=== PATIENT | female | born 1995 | race Caucasian/White ===

== ENCOUNTER 2021-09-26 15:40 | Inpatient (IN) | payer OTHER, SELFPAY ==
[2021-09-26] VITALS (14 sets, daily range): BP systolic 102–123; BP diastolic 62–77; PULSE 80–136; TEMP 36.1–36.8; O2SAT 97–99; BMI 26.1
[2021-09-26] MEDS: Lactated Ringers 1,000 ML 999 ML IV (16:15)
[2021-09-26 16:32] LABS: Absolute Lymphocyte Count 1.67 X10^3/uL (0.83-4.51); Absolute Neutrophil Count 12.3 X10^3/uL (2.0-7.7); Basophil# 0.03 X10^3/uL; Basophil% 0.2 % (0-1); Eosinophil# 0.01 X10^3/uL; Eosinophils% 0.1 % (0-5); Hematocrit 36.9 % (37-47); Hemoglobin 12.3 g/dL (12.0-15.0); Lymphocyte # 1.67 X10^3/ul (0.83-4.51); Lymphocyte % 11.3 % (19-41); Mean Corp Hgb Conc 33.3 g/dL (32-36); Mean Corpuscular Hgb 27.6 pg (27.0-32.0); Mean Corpuscular Volume 82.9 fL (81-99); Mean Platelet Vol. 11.9 fl (6.2-12.0); Monocyte# 0.68 X10^3/uL; Monocyte% 4.6 % (0-10); NRBC Flagged by Analyzer 0 % (0-5); Neutrophil # 12.28 X10^3/uL (2.7-7.7); Neutrophil % 83.2 % (47-70); Platelet Count 187 K/mm3 (150-450); RBC Distribution Width CV 13.4 % (11.6-14.6); RBC Distribution Width SD 40.6 fl (35.1-43.9); Red Blood Count 4.45 M/mm3 (4.2-5.4); White Blood Count 14.8 K/mm3 (4.4-11.0)
--- NOTE | 2021-09-26 20:08 | PCM.HP.OB ---
HPI - General General Date of Admission: 09/26/21 HPI Narrative THUY BOND, is a 25 F who is admitted for labor. She was seen in the office today and was 3 cm dilated. Then began qiana after the exam and was 5 cm on recheck in the office. Having regular ctx's. No vb, lof. Good FM. Maternal Data Information KIM Calculator Estimated Delivery Date Method Current WG Current Estimate 10/15/21 LMP (Certain) 37w 2d PFSH PFSH Medical History (Updated 09/26/21 @ 20:[address] 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) Streptococcus group B infection of infant Medical History no medical history Home Medications + DHA 09/26/21 [History Last Taken 06/18/21] Allergy/AdvReac Type Severity Reaction Status Date / Time No Known Allergies Allergy Verified 09/26/21 16:32 Surgical History no surgical history Social History Smoking Status: Never smoker History Elective abortions Hx Para 1 Spontaneous abortions Hx # Term Pregnancies Ectopic pregnancies Hx # Pregnancies Multiple births # of living children NST FHR Rate Baby A FHR Category:: Category I Uterine Activity:: ctx q 2 min Vital Signs Vital Signs Vital Signs: 09/26/21 15:54 09/26/21 15:55 09/26/21 15:56 Temperature 97.6 F L Temperature Source Tympanic Pulse Rate 136 H 133 H Blood Pressure 117/77 BP Systolic 117 BP Diastolic 77 Pulse Ox 97 99 09/26/21 16:52 09/26/21 18:30 09/26/21 19:25 Temperature 97.7 F L Temperature Source Tympanic Pulse Rate 107 H 89 96 Blood Pressure 123/69 H 116/66 BP Systolic 123 116 BP Diastolic 69 66 Pulse Ox 98 09/26/21 19:26 Temperature 98.2 F Temperature Source Temporal Pulse Rate 84 Blood Pressure 123/71 H BP Systolic 123 BP Diastolic 71 Pulse Ox Weight Weight: 157 lb Body Mass Index (BMI) 26.1 Labs Labs Labs: Blood Type O POSITIVE Antibody Screen POSITIVE H Hct 36.9 % (37-47) L Hgb 12.3 g/dL (12.0-15.0) Assessment & Plan (1) 37 weeks gestation of : PLAN: - Patient made change from 3 to 5 cm - Admit for routine intrapartum care - PCN for GBS prophylaxis - Will wait for PCN time prior to any augmentation - Epidural PRN - EFW expected to be < 4500 g and pelvis adequate - Anticipate vaginal delivery (2) Uterine contractions: (3) Streptococcus group B infection of infant:
[2021-09-26] MEDS: Lactated Ringers 500 ML 999 ML IV (21:11)
--- NOTE | 2021-09-26 21:28 | PCM.PN.BLA ---
Progress Note Cvx /-3, posterior. PCN in. Unable to rupture at this time as baby is not engaged and cvx posterior. Will start pitocin gtt and rupture when able.
[2021-09-26] MEDS: Penicillin G 3,000,000 Units 50 ML 100 UNITS IV (21:49)
[2021-09-26] MEDS: Oxytocin 30 units/NS 500 ml 30 UNITS/500 ML IV.SOLN IV (22:10)
[2021-09-26] MEDS: Lactated Ringers 1,000 ML 200 ML IV (22:12)
[2021-09-27] VITALS (49 sets, daily range): BP systolic 94–128; BP diastolic 52–76; PULSE 64–132; RESP 16; TEMP 36.4–36.9; O2SAT 93–100
[2021-09-27] MEDS: Lactated Ringers 500 ML 999 ML IV ×2 (00:22→02:23)
[2021-09-27] MEDS: fentaNYL-bupivacaine (epidural) 100 ML BAG EPIDURAL (01:24)
[2021-09-27] MEDS: Oxytocin 30 units/NS 500 ml 30 UNITS/500 ML IV.SOLN 334 UNITS IV (02:57)
--- NOTE | 2021-09-27 03:10 | PCM.OPRPT ---
Problems Associated Problem List Diagnoses (1) Uterine contractions: (2) 37 weeks gestation of : Report of Operation Date of Procedure: 09/27/21 Pre-Operative Diagnosis: 37 week gestation, labor Post-Operative Diagnosis: As above Surgery/Procedure Performed:: Description of Surgical Findings:: VFI delivered in OVI position. Clear fluid. Normal appearing placenta and 3VC. Surgeon: Johan Type of Anesthesia: Epidural Specimen's removed: Placenta Drains: Cook Estimated Blood Loss (mL): 150 Fluids Replaced: See anesthesia record Description of Procedure: The patient was complete and an artificial rupture of membranes was performed for a moderate amount of clear fluid. Patient then began pushing. The head of the was delivered in left occiput anterior position followed by the anterior shoulder without any delay, followed by the posterior shoulder and body of the infant without force or delay. A viable female infant was delivered atraumatically and placed on maternal abdomen. The was vigorous. The cord was clamped and cut after a delay. The cord was cut by the father of the baby. Cord blood was obtained. Placenta was delivered with uterine massage. The placenta was noted to be normal-appearing and intact with a three-vessel cord. Uterus was explored x1. No lacerations were noted. Vaginal sweep was performed. Instrument sponge counts were correct. Apgars were 8 and 8. Grafts/Implants Used: None Complications None Admit VTE Documentation VTE Present on Admission: No
[2021-09-27] MEDS: Ibuprofen 600 MG Tablet PO ×2 (08:38→15:37)
[2021-09-27] MEDS: Hydrocortisone 2.5% Crm 1 APPLIC TOPICAL (08:38)
[2021-09-27] MEDS: Benzocaine/Lanolin/Aloe Vera 1 SPRAY EACH TOPICAL (08:43)
--- NOTE | 2021-09-27 12:16 | NURSING ---
This chief nursing officer reviewed the documentation completed by Brian Valerio, student nurse. This documentation was for educational purposes.
[2021-09-27] MEDS: Acetaminophen 500 MG Tablet 1000 MG PO (20:22)
[2021-09-28] MEDS: Ibuprofen 600 MG Tablet PO (00:54)
[2021-09-28 00:57] VITALS: BP 105/59; PULSE 71; RESP 16; TEMP 36.4; O2SAT 97
[2021-09-28 03:41] VITALS: BP 110/63; PULSE 69; RESP 18; TEMP 36.6; O2SAT 97
--- NOTE | 2021-09-28 07:09 | PCM.PN.OB ---
Subjective Subjective Patient seen at bedside. Feeling good. without difficulty. Some mild cramping that is relieved with Motrin PO. Ambulating and voiding without difficulty. Lochia minimal. Desires discharge home today. Objective Data Objective Data Vital Signs: Vital Signs Temp Pulse Resp BP Pulse Ox 97.8 F 69 18 110/63 97 09/28/21 03:41 09/28/21 03:41 09/28/21 03:41 09/28/21 03:41 09/28/21 03:41 Oxygen Delivery Method Room Air Weight: 157 lb Body Mass Index (BMI) 26.1 Intake & Output: Intake and Output for Last 24 Hours 09/26/21 09/27/21 09/28/21 23:59 23:59 23:59 Intake Total 1655 / 1655 2252.90 / 2252.90 Output Total 2200 / 2200 Balance 1655 / 1655 52.90 / 52.90 Lab / Micro Data Result Diagrams: 09/26/21 16:15 Labs: Laboratory Results - last 24 hr 09/26/21 16:15: Antibody Identification ANTI-LITTLE c Micro: Microbiology 09/26/21 16:15 Nasal Secretion SARS-CoV-2 Antigen (Rapid) - Final ROS Eyes Eyes: Denies blurry vision, change in vision or spots in vision ENT HEENT: Denies dizziness or headache(s) Cardiovascular Cardiovascular: Denies abdominal pain, chest pain or dyspnea Respiratory/Chest Respiratory/Chest: Denies cough, dyspnea, shortness of breath at rest or shortness of breath with exertion Gastrointestinal Gastrointestinal: Denies abdominal pain, diarrhea or vomiting Genitourinary Genitourinary: Denies change in urinary stream, difficulty urinating or dysuria Musculoskeletal Musculoskeletal: Reports none Integumentary Integumentary: Denies rash Neurologic Neurologic: Denies dizziness, headache(s), memory loss or weakness Physical Exam Const alert and no apparent distress General Appearance: cooperative and comfortable Exam Limitations: no limitations HEENT normocephalic Eyes General Eye: normal appearance of both eyes Neck full ROM General: normal visual inspection Chest Chest: symmetrical chest wall rise Resp normal respiratory effort and normal air movement Effort and Inspection: symmetric chest movement Auscultation: clear to auscultation bilaterally Cardio regular rate and regular rhythm GI normal to inspection, nondistended, normoactive bowel sounds Back/Spine normal ROM Extremity full ROM and no calf tenderness General Extremity: normal exam except as noted Skin no rashes or lesions noted Neuro CN's II-XII intact bilaterally Psych mental status grossly normal Assessment & Plan (1) (spontaneous vaginal delivery): (2) Care and examination of lactating mother: PLAN: PPD 2 Routine care support Discharge home with follow up in office
--- NOTE | 2021-09-28 07:12 | PCM.DC ---
Discharge Instructions Diet Discharge Diet: No restrictions Activity May resume sexual activity in: 6-8 weeks Weight Bearing Status: Weight bearing as tolerated Dressing / Incision Call your doctor if you observe: Fever of 101 or Higher, Inability to urinate, Using more than 1 pad per hour, Shortness of breath, Chest pain, Calf discomfort and Uncontrolled pain Follow Up Care When: 2 weeks virtual visit/ 6 weeks in office Test Results: Test results from this visit will be discussed in further detail at your follow-up appointment, if applicable. Discharge Plan Admission Admit Date/Time: 09/26/21 15:40 Primary Reason for Your Visit: Labor and Delivery Attending Provider: Farheen Prado Primary Care Provider: Care Physician,Chloe Primary Discharge Orders/Prescriptions Prescriptions: No Action + DHA RF: 0 Referrals / Follow Up: Care Physician,No Primary [Primary Care Provider] - Disposition Disposition (needs filled in before D/C Order can be placed): Home, Self Care
[2021-09-28 08:00] VITALS: BP 114/70; PULSE 99; RESP 16; TEMP 36.6
== END 2021-09-28 10:15 | disposition home or self-care (01) | DRG 807 ==
PROVIDERS: Admitting Provider Obstetrics & Gynecology; Visit Provider Obstetrics & Gynecology
DX: O80 Encounter for full-term uncomplicated delivery (principal); Z37.0 Single live birth; Z3A.37 37 weeks gestation of pregnancy; Z82.79 Family history of other congenital malformations, deformations and chromosomal abnormalities
CPT/HCPCS: 59025; 59050; 85025; 86850; 86870; 86900; 86901; 86902; 86920; 86922; 87426; 99218; J7120; G0378

== ENCOUNTER 2023-04-03 09:12 | Day surgery (SDC) | payer OTHER, SELFPAY ==
--- NOTE | 2023-03-27 13:29 | PCM.HP.BLA ---
History and Physical Date of Admission: 04/03/23 ? HPI: The patient is a 27 year old female presenting for pre-operative visit. She is scheduled for bilateral labiaplasty, for labial hypertrophy resulting in dyspareunia on 04/03/23. Procedure discussed along with risks, benefits and complications. Other alternatives discussed for management. Consent form signed? Yes. ? ? PAST MEDICAL HISTORY PAST MEDICAL HISTORY Diagnosis Date ? Abnormal Pap smear of cervix 03/09/2021 ? LGSIL-done in [place] ? Acne vulgaris ? ? Cervical high risk HPV (human papillomavirus) test positive 10/2021 ? +16 ? 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 CARLITOS 2-3 ? Pap smear of cervix with ASCUS, cannot exclude HGSIL 10/2021 ? ? PAST SURGICAL HISTORY PAST SURGICAL HISTORY Procedure Laterality Date ? VAGINOSCOPY ? 12/11/2021 ? CARLITOS 2-3 ? ? ? CURRENT MEDICATIONS Current Outpatient Medications Medication Sig Dispense Refill ? fluconazole (DIFLUCAN) 150 mg tablet Take one tablet by mouth once. Then repeat every 3 days for 3 doses. (Patient not taking: Reported on 02/24/2023) 3 tablet 0 ? loratadine (CLARITIN ORAL) Take by mouth. (Patient not taking: Reported on 08/01/2022) ? ? ? No current facility-administered medications for this visit. ? ? ALLERGIES: Patient has no known allergies. ? PERSONAL HISTORY: SOCIAL HISTORY Social History ? Tobacco Use ? Smoking status: Never ? Smokeless tobacco: Never Vaping Use ? Vaping Use: Never used Substance Use Topics ? Alcohol use: No ? Drug use: No ? FAMILY HISTORY: FAMILY HISTORY FAMILY HISTORY Problem Relation Age of Onset ? No Known Problems Mother ? ? No Known Problems Father ? ? No Known Problems Sister ? ? No Known Problems Brother ? ? Lung Cancer Maternal Grandmother ? ? Skin Cancer Maternal Grandfather ? ? Diabetes Paternal Grandmother ? ? Colon Cancer Paternal Grandfather ? ? No Known Problems Daughter ? ? None No Family History ? ? ? REVIEW OF SYMPTOMS: GENERAL: denies fevers or chills ENDOCRINOLOGY: has not been on steroids Cardiology : denies palpitations or chest pain Respiratory: denies SOB or cough Hematology: denies history of prolonged bleeding or easy bruising or VTE Allergy: Denies history of personal or family history of allergy to anesthesia ? PHYSICAL EXAMINATION: ? VITALS: Blood pressure 118/76, height 5' 5 (1.651 m), weight 122 lb (55.3 kg), last menstrual period 03/12/2023, not currently . ? GENERAL: The patient is well nourished, well hydrated in no acute distress. , The patient is oriented to time, place, and person. NECK: Supple. No lynphadenopathy, normal thyroid, no thyromegaly. LUNGS: Clear to auscultation bilaterally. no wheezes, rhonchi or rales HEART: Regular rate and rhythm, Normal heart sounds, and No murmurs or gallops ? IMPRESSION: labial hypertrophy resulting in dyspareunia nad affecting quality of life, clothing options ? PLAN: The risks/benefits/alternatives and personal involved for the planned bilateral labial reduction were reviewed with the patient. Her questions were answered to her satisfaction and she desires to proceed. Consent was signed. I reviewed with her postop instructions and expectations. ? ? I have reviewed and updated past medical and surgical history, medications and allergies This H&P was completed in my office on 03/26/23. Assessment & Plan Assessment/Plan (1) Labial hypertrophy: (2) Dyspareunia:
[2023-04-03] VITALS (7 sets, daily range): BP systolic 94–110; BP diastolic 59–73; PULSE 74–90; RESP 16–18; TEMP 36.6–37.2; O2SAT 77–100; BMI 20.3
--- NOTE | 2023-04-03 | MISC_PTH ---
PATIENT: THUY BOND [place] [facility] [id number] AGE/SX: 27/F ROOM: RE04/03/[address]: Dr. Francesca Salvador MD : [id number] BED: DIS: 04/03/2023 SPEC #: [id number] RECD: 04/03/23 14:09 STATUS: IGOR EMILIE #: [id number] MARY: 04/03/23 00:[address]: Francesca Salvador DEPT: SURGICAL PATHOLOGY RECD BY: Wilber Zhang ENTERED: 04/04/23 08:02 SP TYPE: [facility] [place] DR: No Primary Care Phys Tissues: Labial gland, NOS Procedures: Surgery Specimen Level IV HEADER OPERATION: Labiaplasty PRE-OP DIAGNOSIS: Labial hypertrophy, dyspareunia TISSUE SUBMITTED: Bilateral labial tissue MICROSCOPIC DIAGNOSIS Bilateral labial tissue, excision: Hyperkeratosis and mild chronic inflammation. AM:jessica 04/07/2023 MICROSCOPIC DESCRIPTION Slides are reviewed. GROSS DESCRIPTION Received in fixative is one container labeled with the patient's name and designated bilateral labial tissue. The specimen consists of two glistening fragments of mariano mucosa with attached submucosal tissue that in aggregate measure 4.4 x 4.0 x 0.6 cm. No mass lesions are identified. Brim Pouncer Machine Operator sections from both fragments are submitted separately in two cassettes. / AM:jessica 04/04/2023 TC:3 CPT: 12462
[2023-04-03 09:40] LABS: Internal QC Validated? YES +Cl - CLEAR BKGD
[2023-04-03 09:43] LABS: Pregnancy, Urine Negative Negative
[2023-04-03] MEDS: Lactated Ringers 1,000 ML 15 ML IV (09:58)
[2023-04-03] MEDS: Acetaminophen 500 MG Tablet 1000 MG PO (09:59)
[2023-04-03] MEDS: Ketorolac 30 MG/ML Syringe IV (10:00)
[2023-04-03 10:02] LABS: Hematocrit 40.8 % (37-47); Mean Corp Hgb Conc 31.9 g/dL (32-36); Mean Corpuscular Hgb 27.5 pg (27.0-32.0); Mean Corpuscular Volume 86.3 fL (81-99); Mean Platelet Vol. 11.2 fl (6.2-12.0); Platelet Count 228 K/mm3 (150-450); RBC Distribution Width CV 13.2 % (11.6-14.6); RBC Distribution Width SD 41.1 fl (35.1-43.9); Red Blood Count 4.73 M/mm3 (4.2-5.4); White Blood Count 6.6 K/mm3 (4.4-11.0)
--- NOTE | 2023-04-03 12:35 | DCINST_ITS ---
Discharge Instructions Diet Discharge Diet: No restrictions Activity Discharge Activity: May Shower and May Take a Tub Bath (in 10 days) May resume sexual activity in: 2 weeks Lifting Restrictions: none Dressing / Incision Call your doctor if your incision/area has: Sudden Increased Bleeding and Foul Smelling Discharge Call your doctor if you observe: Fever of 101 or Higher and Using more than 1 pad per hour (for 2 hrs in a row) Cleanse incision/area with: Soap & Water Follow Up Care Please Follow Up With: Francesca Salvador MD When: You should have a follow-up in 7 to 10 days. If you do not have 1 please contact the office at [phone] or send a [employer] message. Test Results: Test results from this visit will be discussed in further detail at your follow- up appointment, if applicable. Discharge Plan Admission Primary Reason for Your Visit: Labiaplasty- bilateral Attending Provider: Francesca Salvador Primary Care Provider: Care Physician,Chloe Primary Discharge Orders/Prescriptions Prescriptions: No Action + DHA Referrals / Follow Up: Care Physician,No Primary [Primary Care Provider] - Disposition Disposition (needs filled in before D/C Order can be placed): Home, Self Care
[2023-04-03] MEDS: Lidocaine 1%/Epi 1:100 (30ml) 30 ML VIAL (12:48)
--- NOTE | 2023-04-03 13:02 | OP.PCM_ITS ---
Problems Associated Problem List Diagnoses (1) Dyspareunia: (2) Labial hypertrophy: Report of Operation Date of Procedure: 04/03/23 Pre-Operative Diagnosis: labial hypertrophy and dyspareunia Post-Operative Diagnosis: same Surgery/Procedure Performed:: Bilateral labiaplasty Description of Surgical Findings:: hypertrophied labia minora bilaterlly, normal labia major and introitus Surgeon: Francesca Salvador activities assistant: None Type of Anesthesia: MAC/Supplemental/Local Anesthesiologist: Lindsay Rodriguez Special Medications: none Specimen's removed: bilateral labia minora tissue Drains: none Estimated Blood Loss (mL): 10 Fluids Replaced: 800none Description of Procedure: The patient was taken the operating room where she was prepped and draped in the dorsolithotomy position. The redundant labial minora tissue was marked and then 1% lidocaine with 1-200,000 epinephrine was used to infiltrate the tissue. Made an elliptical incision so that the redundant tissue was removed and the labia would be left with a physiological curve. The skin edges were then oversewn with 3-0 Vicryl Rapide suture and hemostasis was noted. A small layer of skin glue was placed over the incisions. This was allowed to dry. The patient was then taken recovery room stable condition. Vaginal sweep was completed by me. Sponge and needle counts were correct. Grafts/Implants Used: none Procedure Start Time: 12:43 Procedure Stop Time: 12:56 Complications none Admit VTE Documentation VTE Present on Admission: No VTE Mechan Device Prophylaxis: SCD's VTE Pharm Prophylaxis ordered?: No Reason prophylaxis not ordered:: Procedure Not Indicated
== END 2023-04-03 14:00 | disposition home or self-care (01) ==
LOC: SDC 09:16 → AC 09:18
PROVIDERS: Referring Provider Obstetrics & Gynecology; Visit Provider Obstetrics & Gynecology
PROC: (CPT 56620; principal; 2023-04-03 10:50)
DX: N90.4 Leukoplakia of vulva (principal); L85.9 Epidermal thickening, unspecified; N90.60 Unspecified hypertrophy of vulva
CPT/HCPCS: 56620; 00906; 81025; 85027; 88305; J7120

== ENCOUNTER 2023-04-03 17:30 | Observation (INO) | payer OTHER, SELFPAY ==
[2023-04-03 17:32] VITALS: BP 139/65; PULSE 137; RESP 18; TEMP 37; O2SAT 99; BMI 21.7
[2023-04-03] MEDS: Morphine 4 MG/ML Syringe IV ×2 (17:37→18:17)
[2023-04-03] MEDS: Ondansetron 4 MG/2 ML Vial IV ×2 (17:37→23:16)
[2023-04-03] MEDS: 0.9% Normal Saline 1,000 ML 1000 ML IV (17:38)
--- NOTE | 2023-04-03 17:41 | EDS_ITS ---
HPI History of Present Illness Chief Complaint: Wound Informant: patient Narrative Narrative: Patient presents with vulvar swelling and hematoma. Patient had labioplasty performed today by Dr. Salvador. She states she left the hospital around 2 PM. She went home and tried using ice pack and some Dermoplast to her incision area. She noted increased pain and swelling. She states she did have bleeding that filled 1 pad at home. EMS was called and patient was transported. On arrival patient is very anxious. She has pain to the surgical sites but no other abdominal pain or chest pain. 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) MRSA infection Non-smoker Smoker Streptococcus group B infection of infant Streptococcus group B infection of (spontaneous vaginal delivery) Uterine contractions Home Medications + DHA 09/26/21 [History Last Taken 06/18/21] Allergy/AdvReac Type Severity Reaction Status Date / Time No Known Allergies Allergy Verified 04/03/23 17:30 Surgical History H/O LEEP Social History Smoking Status: Never smoker ROS ROS ED Constitutional Constitutional ED: Denies chills or fever(s) Eyes Eyes: Denies change in vision or discharge from eye(s) ENT ENT ED: Denies discharge from eye(s), rhinorrhea or sore throat Cardiovascular Cardiovascular: Denies chest pain or palpitations Respiratory/Chest Respiratory/Chest: Denies cough or dyspnea Gastrointestinal Gastrointestinal: Denies abdominal pain, nausea or vomiting Genitourinary Genitourinary ED: Reports other Details: Vulvar pain Musculoskeletal Musculoskeletal: Denies back pain or extremity pain Integumentary Denies Abrasions or rash Neurologic Neurologic: Denies headache(s) or weakness Psychiatric Psychiatric: Denies anxiety or depression Allergic/Immunologic Allergic/Immunologic ED: Denies lip swelling or urticaria EXAM Physical Exam Const Vital Signs: 04/03/23 17:32 04/03/23 19:34 Temperature 98.6 F 97.4 F L Temperature Source Temporal Temporal Pulse Rate 137 H 110 H Respiratory Rate 18 20 H Blood Pressure 139/65 H 108/58 L Blood Pressure Mean 89 74 Pulse Ox 99 100 Oxygen Delivery Method Room Air Room Air Positive well nourished and well developed General Appearance ED: well developed Eyes EOMs intact bilaterally Chest Wall inspection of chest normal and palpation of chest normal Resp normal respiratory effort and clear to auscultation bilaterally Cardio Rate: tachycardic GI GI Narrative: Abdomen soft and nontender. Narrative: Large hematoma noted to the vulva, right side greater than left. Mild bleeding from the incision on the left. Extremity normal to inspection Neuro oriented x3 Psych Mood & Affect: anxious and tearful MDM MDM MDM Narrative Medical decision making narrative: Patient given analgesics and IV fluids. Labwork obtained to evaluate for leukocytosis, anemia, and electrolyte derangement. I spoke with Dr. Cherie Stock, on-call for Dr. Salvador just after I saw the patient. She is on her way to her delivery and then will be up to see the patient. She did asked that we place ice packs and compression to the area. I was called back to the room a short time later stating that the incision on the left had reopened and was bleeding. Pressure was held to this area. I see no pulsatile bleeding. Pressure dressing and ice is applied to the area. Lab Data Labs: Laboratory Results - last 24 hr 04/03/23 17:40 WBC 8.1 RBC 4.05 L Hgb 11.1 L Hct 35.4 L MCV 87.4 MCH 27.4 MCHC 31.4 L RDW Std Deviation 42.2 RDW Coeff of [place]ien[place] 13.2 Plt Count 233 MPV 11.1 Immature Gran % (Auto) 0.400 Neut % (Auto) 49.1 Lymph % (Auto) 40.3 [place] % (Auto) 8.6 Eos % (Auto) 1.1 Baso % (Auto) 0.5 Absolute Neuts (auto) 4.0 Absolute Lymphs (auto) 3.28 Nucleated RBC % 0 PT 14.2 INR 1.1 APTT 30.0 Sodium 140 Potassium 3.2 L Chloride 110 H Carbon Dioxide 26.0 Anion Gap 4 L BUN 12 Creatinine 0.74 Estim Creat Clear Calc 99.48 Est GFR (MDRD) Af Amer 121 Est GFR (MDRD) Non-Af 100 BUN/Creatinine Ratio 16.1 Glucose 102 Calcium 7.9 L Treatment and Re-Evaluation :: CBC was a hemoglobin of 11.1. Hemoglobin this morning was 13, however it is noted the patient did receive IV fluids. Chemistry studies reveal slightly low potassium at 3.2. Patient's blood pressures remained stable with IV fluids. She is received 2 rounds of morphine for pain control with dressing changes. Dr. Stock presented to the ER and examine the patient at bedside. She will admit the patient for 24-hour observation and close monitoring. Discharge Plan Dx/Rx/DC Orders Clinical Impression: Post-op bleeding Disposition Disposition: Acute Care Hospital [facility]
[2023-04-03 17:49] LABS: Absolute Lymphocyte Count 3.28 X10^3/uL (0.83-4.51); Basophil# 0.04 X10^3/uL; Basophil% 0.5 % (0-1); Eosinophil# 0.09 X10^3/uL; Eosinophils% 1.1 % (0-5); Hematocrit 35.4 % (37-47); Hemoglobin 11.1 g/dL (12.0-15.0); Lymphocyte # 3.28 X10^3/ul (0.83-4.51); Lymphocyte % 40.3 % (19-41); Mean Corp Hgb Conc 31.4 g/dL (32-36); Mean Corpuscular Hgb 27.4 pg (27.0-32.0); Mean Corpuscular Volume 87.4 fL (81-99); Mean Platelet Vol. 11.1 fl (6.2-12.0); Monocyte% 8.6 % (0-10); NRBC Flagged by Analyzer 0 % (0-5); Neutrophil # 3.99 X10^3/uL (2.7-7.7); Neutrophil % 49.1 % (47-70); Platelet Count 233 K/mm3 (150-450); RBC Distribution Width CV 13.2 % (11.6-14.6); RBC Distribution Width SD 42.2 fl (35.1-43.9); Red Blood Count 4.05 M/mm3 (4.2-5.4); White Blood Count 8.1 K/mm3 (4.4-11.0)
[2023-04-03 17:58] LABS: International Normalized Ratio 1.1; Prothrombin Time (Protime)PT. 14.2 SECONDS (11.7-14.9)
[2023-04-03 18:02] LABS: Anion Gap 4 (5-15); BUN 12 mg/dL (7-18); BUN/Creat Ratio 16.1 RATIO (10-20); Calcium,Total 7.9 mg/dL (8.5-10.1); Chloride 110 mmol/L (98-107); Creatinine, Serum 0.74 mg/dL (0.55-1.02); EST Glomerular Filtration Rate 100 mL/min (>60); Est Glom Filt Rate - Afr Amer 121 mL/min (>60); Estimated Creatinine Clearance 99.48 ml/min; Glucose 102 mg/dL (74-106); Potassium 3.2 mmol/L (3.5-5.1); Sodium Level 140 mmol/L (136-145)
[2023-04-03] MEDS: 0.9% Normal Saline 1,000 ML 150 ML IV (18:19)
[2023-04-03] MEDS: 0.9% Normal Saline 1,000 ML 999 ML IV (18:26)
[2023-04-03 19:34] VITALS: BP 108/58; PULSE 110; RESP 20; TEMP 36.3; O2SAT 100
--- NOTE | 2023-04-03 19:39 | HP.PCM_ITS ---
HPI - General General Date of Admission: 04/03/23 Date of Service: 04/03/23 Chief Complaint: Labial pain HPI Narrative THUY BOND, is a 27 F who presents via squad to the ED. Patient had labial reduction surgery earlier today. She went home and tried using an ice pack and some Dermoplast. This afternoon she noticed increased pain and swelling. She presented to the ED with vulvar swelling and hematoma. She states she did have bleeding that filled 1 pad at home. Patient was anxious on arrival to ED. She has pain to the surgical sites but no other abdominal pain or chest pain. 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) MRSA infection Non-smoker Smoker Streptococcus group B infection of Streptococcus group B infection of (spontaneous vaginal delivery) Uterine contractions Home Medications + DHA 09/26/21 [History Last Taken 06/18/21] Allergy/AdvReac Type Severity Reaction Status Date / Time No Known Allergies Allergy Verified 04/03/23 17:30 Surgical History H/O LEEP Social History Smoking Status: Never smoker Vital Signs Vital Signs Vital Signs: 04/03/23 17:32 04/03/23 19:34 Temperature 98.6 F 97.4 F L Temperature Source Temporal Temporal Pulse Rate 137 H 110 H Respiratory Rate 18 20 H Blood Pressure 139/65 H 108/58 L Blood Pressure Mean 89 74 Pulse Ox 99 100 Oxygen Delivery Method Room Air Room Air Weight Weight: 130 lb 1.164 oz Body Mass Index (BMI) 21.7 Physical Exam Narrative - right labial swelling with hematoma, total measurement [id number], area of scant oozing Const alert and oriented x3 Constitutional Narrative: appears uncomfortable Resp normal respiratory effort GI soft to palpation, non-tender and non-distended Results Lab / Micro Data 04/03/23 17:40 04/03/23 17:40 Labs: Laboratory Results - last 24 hr 04/03/23 17:40: WBC 8.1, RBC 4.05 L, Hgb 11.1 L, Hct 35.4 L, MCV 87.4, MCH 27.4, MCHC 31.4 L, RDW Std Deviation 42.2, RDW Coeff of Siena 13.2, Plt Count 233, MPV 11.1, Immature Gran % (Auto) 0.400, Neut % (Auto) 49.1, Lymph % (Auto) 40.3, [place] % (Auto) 8.6, Eos % (Auto) 1.1, Baso % (Auto) 0.5, Absolute Neuts (auto) 4.0, Absolute Lymphs (auto) 3.28, Nucleated RBC % 0, PT 14.2, INR 1.1, APTT 30.0, Sodium 140, Potassium 3.2 L, Chloride 110 H, Carbon Dioxide 26.0, Anion Gap 4 L, BUN 12, Creatinine 0.74, Estim Creat Clear Calc 99.48, Est GFR (MDRD) Af Amer 121, Est GFR (MDRD) Non-Af 100, BUN/Creatinine Ratio 16.1, Glucose 102, Calcium 7.9 L Assessment & Plan Assessment/Plan (1) Labial pain: (2) Vulvar hematoma: PLAN: Plan 27yo female POD#0 Admit for 23hr obs Heme - HDS. CBC reviewed. Check repeat CBC in AM. Hypokalemia - potassium in IVF & will repeat in AM Stephanie & pressure applied to area of scant bleeding. Ice packs also applied. Plan for observation overnight. Patient seen 3 times over a 3 hours period this evening. Hematoma noted to be stable to slightly smaller in size. Also oozing of blood from right inferior labia noted to be minimal to stopped at 3rd check. Plan of care discussed with patient & her . All questions answered.
[2023-04-03 20:18] VITALS: BMI 21.3
[2023-04-03 20:20] VITALS: BP 107/63; PULSE 87; RESP 16; TEMP 36.6; O2SAT 100
[2023-04-03] MEDS: Acetaminophen 500 MG Tablet 1000 MG PO (20:59)
[2023-04-03] MEDS: KCl 20MEQ in D5NS 20 MEQ/1,000 ML IV.SOLN. 100 MEQ IV (21:15)
[2023-04-03 22:04] VITALS: BP 99/54; PULSE 73; RESP 16; TEMP 36.6; O2SAT 99
[2023-04-03] MEDS: Morphine 2 MG/ML Syringe IV (22:06)
[2023-04-03] MEDS: Ibuprofen 600 MG Tablet PO (23:17)
[2023-04-04] MEDS: oxyCODONE 5 MG Tablet 10 MG PO ×3 (01:53→17:28)
[2023-04-04 01:58] VITALS: BP 106/60; PULSE 87; RESP 16; TEMP 36.7; O2SAT 99
[2023-04-04 06:00] LABS: Absolute Lymphocyte Count 2.06 X10^3/uL (0.83-4.51); Absolute Neutrophil Count 4.8 X10^3/uL (2.0-7.7); Basophil# 0.03 X10^3/uL; Basophil% 0.4 % (0-1); Eosinophil# 0.06 X10^3/uL; Eosinophils% 0.8 % (0-5); Hematocrit 27.3 % (37-47); Hemoglobin 8.4 g/dL (12.0-15.0); Lymphocyte # 2.06 X10^3/ul (0.83-4.51); Mean Corp Hgb Conc 30.8 g/dL (32-36); Mean Corpuscular Hgb 27.8 pg (27.0-32.0); Mean Corpuscular Volume 90.4 fL (81-99); Mean Platelet Vol. 11.4 fl (6.2-12.0); Monocyte# 0.66 X10^3/uL; Monocyte% 8.6 % (0-10); NRBC Flagged by Analyzer 0 % (0-5); Neutrophil # 4.81 X10^3/uL (2.7-7.7); Neutrophil % 62.9 % (47-70); Platelet Count 178 K/mm3 (150-450); RBC Distribution Width CV 13.6 % (11.6-14.6); RBC Distribution Width SD 44.6 fl (35.1-43.9); Red Blood Count 3.02 M/mm3 (4.2-5.4); White Blood Count 7.6 K/mm3 (4.4-11.0)
[2023-04-04] MEDS: Acetaminophen 500 MG Tablet 1000 MG PO ×3 (06:15→21:20)
[2023-04-04 06:20] VITALS: BP 95/58; PULSE 70; RESP 18; TEMP 36.7; O2SAT 100
[2023-04-04 06:24] LABS: Anion Gap 2 (5-15); BUN 10 mg/dL (7-18); BUN/Creat Ratio 17.2 RATIO (10-20); Calcium,Total 7.7 mg/dL (8.5-10.1); Chloride 115 mmol/L (98-107); Creatinine, Serum 0.58 mg/dL (0.55-1.02); EST Glomerular Filtration Rate 133 mL/min (>60); Est Glom Filt Rate - Afr Amer 161 mL/min (>60); Estimated Creatinine Clearance 132.26 ml/min; Glucose 113 mg/dL (74-106); Potassium 4.1 mmol/L (3.5-5.1); Sodium Level 144 mmol/L (136-145)
[2023-04-04] MEDS: KCl 20MEQ in D5NS 20 MEQ/1,000 ML IV.SOLN. 100 MEQ IV ×2 (06:43→17:29)
--- NOTE | 2023-04-04 09:01 | PN_ITS ---
Subjective Subjective Patient seen at bedside, emotional this morning. Christianson catheter is in place. She reports that her pain is slightly improved since last night. She is not complaining of any chest pain, shortness of breath or dizziness. She denies any pressure into her rectal area. She has not had anything to eat or drink at this time. Objective Data Objective Data Vital Signs: Vital Signs Temp Pulse Resp BP Pulse Ox O2 Del Method 98.0 F 70 18 95/58 L 100 Room Air 04/04/23 06:20 04/04/23 06:20 04/04/23 06:20 04/04/23 06:20 04/04/23 06:20 04/04/23 06:20 Oxygen Delivery Method Room Air Weight: 58.1 kg Body Mass Index (BMI) 21.3 Intake & Output: Intake and Output for Last 24 Hours 04/02/23 04/03/23 04/04/23 23:59 23:59 23:59 Intake Total 2377.5 / 2377.5 946.67 / 946.67 Output Total 0 / 0 Balance 2377.5 / 2377.5 946.67 / 946.67 Lab / Micro Data 04/04/23 05:25 04/04/23 05:25 Labs: Laboratory Results - last 24 hr 04/03/23 17:40: WBC 8.1, RBC 4.05 L, Hgb 11.1 L, Hct 35.4 L, MCV 87.4, MCH 27.4, MCHC 31.4 L, RDW Std Deviation 42.2, RDW Coeff of Siena 13.2, Plt Count 233, MPV 11.1, Immature Gran % (Auto) 0.400, Neut % (Auto) 49.1, Lymph % (Auto) 40.3, Warrick % (Auto) 8.6, Eos % (Auto) 1.1, Baso % (Auto) 0.5, Absolute Neuts (auto) 4.0, Absolute Lymphs (auto) 3.28, Nucleated RBC % 0, PT 14.2, INR 1.1, APTT 30.0, Sodium 140, Potassium 3.2 L, Chloride 110 H, Carbon Dioxide 26.0, Anion Gap 4 L, BUN 12, Creatinine 0.74, Estim Creat Clear Calc 99.48, Est GFR (MDRD) Af Amer 121, Est GFR (MDRD) Non-Af 100, BUN/Creatinine Ratio 16.1, Glucose 102, Calcium 7.9 L, Blood Type O POSITIVE, Antibody Screen NEGATIVE 04/04/23 05:25: WBC 7.6, RBC 3.02 L, Hgb 8.4 L, Hct 27.3 L, MCV 90.4, MCH 27.8, MCHC 30.8 L, RDW Std Deviation 44.6 H, RDW Coeff of Siena 13.6, Plt Count 178, MPV 11.4, Immature Gran % (Auto) 0.300, Neut % (Auto) 62.9, Lymph % (Auto) 27.0, Warrick % (Auto) 8.6, Eos % (Auto) 0.8, Baso % (Auto) 0.4, Absolute Neuts (auto) 4.8, Absolute Lymphs (auto) 2.06, Nucleated RBC % 0, Sodium 144, Potassium 4.1, Chloride 115 H, Carbon Dioxide 27.0, Anion Gap 2 L, BUN 10, Creatinine 0.58, Estim Creat Clear Calc 132.26, Est GFR (MDRD) Af Amer 161, Est GFR (MDRD) Non-Af 133, BUN/Creatinine Ratio 17.2, Glucose 113 H, Calcium 7.7 L Physical Exam Narrative Right labia hematoma tender to touch. Measuring approximately 12 cm x 9 cm. No active bleeding appreciated however there is blood noted on the ABD pads. Christianson is intact. New ice pack and new pads were placed this morning. Weight was placed and patient was asked to please place as much weight on the area as possible for tamponade as possible without causing her more pain. Left labia appears to be intact no bleeding and no hematoma appreciated. Const alert and oriented x3 General Appearance: cooperative HEENT normocephalic GI GI Narrative: Gravid, non tender to palpation. OB / External & Speculum: external exam normal Extremity normal to inspection Skin no rashes or lesions noted Neuro oriented x3 and CN's II-XII intact bilaterally Psych Appearance: grossly normal Assessment & Plan Assessment/Plan (1) Vulvar hematoma: (2) Labial pain: (3) Post-op bleeding: (4) Acute blood loss anemia: PLAN: Plan POD#1, HD#1, s/p labiaplasty with post op right labial hematoma with acute blood loss anemia 1) maintain christianson catheter 2) repeat cbc noon 3) maintain NPO- clears ok - discussed if hematoma not expanding and cbc stable would prefer to not take back to OR and allow spontaneous resolution 4) pain mgmt
[2023-04-04] MEDS: Morphine 2 MG/ML Syringe IV (09:03)
[2023-04-04 09:06] VITALS: BP 93/58; PULSE 83; RESP 18; TEMP 36.9; O2SAT 96
[2023-04-04 10:00] VITALS: PULSE 78
[2023-04-04 12:31] LABS: Hematocrit 27.9 % (37-47); Hemoglobin 8.4 g/dL (12.0-15.0); Mean Corp Hgb Conc 30.1 g/dL (32-36); Mean Corpuscular Hgb 27.6 pg (27.0-32.0); Mean Corpuscular Volume 91.8 fL (81-99); Mean Platelet Vol. 11.4 fl (6.2-12.0); Platelet Count 178 K/mm3 (150-450); RBC Distribution Width CV 13.5 % (11.6-14.6); RBC Distribution Width SD 45.5 fl (35.1-43.9); Red Blood Count 3.04 M/mm3 (4.2-5.4); White Blood Count 6.3 K/mm3 (4.4-11.0)
[2023-04-04 14:30] VITALS: BP 102/59; PULSE 73; RESP 16; TEMP 36.8; O2SAT 100
[2023-04-04] MEDS: Ondansetron 4 MG/2 ML Vial IV (21:21)
[2023-04-04 21:30] VITALS: BP 102/57; PULSE 67; RESP 18; TEMP 36.5; O2SAT 100
[2023-04-05] MEDS: Ibuprofen 600 MG Tablet PO (02:54)
[2023-04-05 03:30] VITALS: BP 102/57; PULSE 71; RESP 18; TEMP 37; O2SAT 100
[2023-04-05] MEDS: KCl 20MEQ in D5NS 20 MEQ/1,000 ML IV.SOLN. 100 MEQ IV (04:03)
[2023-04-05 06:20] LABS: Hematocrit 25.9 % (37-47); Hemoglobin 8.1 g/dL (12.0-15.0); Mean Corp Hgb Conc 31.3 g/dL (32-36); Mean Corpuscular Hgb 28.3 pg (27.0-32.0); Mean Corpuscular Volume 90.6 fL (81-99); Mean Platelet Vol. 10.8 fl (6.2-12.0); Platelet Count 145 K/mm3 (150-450); RBC Distribution Width CV 13.3 % (11.6-14.6); RBC Distribution Width SD 44.1 fl (35.1-43.9); Red Blood Count 2.86 M/mm3 (4.2-5.4); White Blood Count 5.7 K/mm3 (4.4-11.0)
--- NOTE | 2023-04-05 07:56 | PN_ITS ---
Subjective Subjective Seen at bedside, reports feeling well but has a tension headache. States that pain in the vulvar area rated 4-5 out of 10. She states she notices some pain in her stomach but thinks it is because she ate and might need to have a bowel movement at this time. Christianson catheter in place. Patient states she is ready f or DC home today. She reports she stays home with her children and is able to take it easy upon discharge home. Objective Data Objective Data Vital Signs: Vital Signs Temp Pulse Resp BP Pulse Ox O2 Del Method 98.6 F 71 18 102/57 L 100 Room Air 04/05/23 03:30 04/05/23 03:30 04/05/23 03:30 04/05/23 03:30 04/05/23 03:30 04/05/23 03:30 Oxygen Delivery Method Room Air Weight: 58.1 kg Body Mass Index (BMI) 21.3 Intake & Output: Intake and Output for Last 24 Hours 04/03/23 04/04/23 04/05/23 23:59 23:59 23:59 Intake Total 2377.5 / 2377.5 67 / 1000 / 1000 Output Total 750 / 1500 750 / 750 Balance 2377.5 / 2377.5 1246.67 / 496.67 250 / 250 Lab / Micro Data Attestation: I reviewed the patient's lab results. 04/05/23 06:10 04/04/23 05:25 Labs: Laboratory Results - last 24 hr 04/04/23 12:05: WBC 6.3, RBC 3.04 L, Hgb 8.4 L, Hct 27.9 L, MCV 91.8, MCH 27.6, MCHC 30.1 L, RDW Std Deviation 45.5 H, RDW Coeff of Siena 13.5, Plt Count 178, MPV 11.4 04/05/23 06:10: WBC 5.7, RBC 2.86 L, Hgb 8.1 L, Hct 25.9 L, MCV 90.6, MCH 28.3, MCHC 31.3 L, RDW Std Deviation 44.1 H, RDW Coeff of Siena 13.3, Plt Count 145 L, MPV 10.8 Physical Exam Narrative Labial hematoma; today softer on palpation. Slightly smaller measuring 10 cm x 7 cm Christianson catheter intact. No active draining. Suture sites are intact. Hematoma is not tracking down towards the anus. Assessment & Plan Assessment/Plan (1) Acute blood loss anemia: (2) Vulvar hematoma: (3) Labial pain: (4) Post-op bleeding: (5) Headache: PLAN: Plan HD#2, POD#2, - labial hematoma s/p labiaplasty - acute blood loss anemia 1) dc home today- change to christianson to leg bag 2) start Iron daily- hg/hct stable 3) Fioricet for headache 4) Follow up with Dr. Salvador in office friday04/09/23 2:40pm 5) discussed when to return to hospital- discussed pressure and ice at home
--- NOTE | 2023-04-05 08:03 | DCINST_ITS ---
Discharge Instructions Diet Discharge Diet: No restrictions Activity Discharge Activity: Return to Normal Activity (Do not drive while taking narcotic pain medication ) May resume sexual activity in: 6 weeks Weight Bearing Status: Full weight bearing Lifting Restrictions: 15lb Dressing / Incision Call your doctor if your incision/area has: Sudden Increased Bleeding, Increased Pain/ Swelling and Foul Smelling Discharge Call your doctor if you observe: Fever of 101 or Higher, Using more than 1 pad per hour and Uncontrolled pain Catheter: Cook to leg bag Follow Up Care Please Follow Up With: Francesca Salvador MD When: Friday04/07/23 2:40pm Test Results: Test results from this visit will be discussed in further detail at your follow- up appointment, if applicable. Discharge Plan Admission Admit Date/Time: 04/03/23 20:30 Attending Provider: Yessy Stock Primary Care Provider: Chloe Wheatley Primary Discharge Orders/Prescriptions Prescriptions: New acetaminophen 500 mg Tablet 1,000 mg PO Q8 Qty: 0 0RF ibuprofen 600 mg Tablet 600 mg PO Q6H PRN PRN (Reason: Pain Score 1-10) Qty: 0 0RF oxycodone 5 mg Tablet 5 mg PO Q4H PRN PRN (Reason: Pain Score 4-10) 7 Days Qty: 20 0RF sulfamethoxazole-trimethoprim [Bactrim DS] 800-160 mg tablet 1 tab PO BID Qty: 14 0RF tkyhwicrhe-hsacoydjwryxo-tcpr [Fioricet] 50-300-40 mg capsule 1 cap PO Q8H PRN (Reason: headache) Qty: 10 0RF Continued + DHA Referrals / Follow Up: Care Physician,No Primary [Primary Care Provider] - Disposition Disposition (needs filled in before D/C Order can be placed): Home, Self Care
[2023-04-05 08:15] VITALS: BP 104/57; PULSE 83; RESP 16; TEMP 36.8; O2SAT 100
--- NOTE | 2023-04-05 08:20 | DS.PCM_ITS ---
Discharge Summary Date of Admission: 04/03/23 Date of Discharge: 04/05/23 Summary: At was admitted to [facility] on 04/03/2023. She underwent a bilateral labioplasty on 04/03/[address] Francesca Salvador was discharged home in stable condition she then returned to the hospital with a labial hematoma. She was admitted with right labial hematoma approximately 12 cm. Cook catheter was placed due to swelling. She had hemoglobin of 8.4 which over the course of her stay was stable. She remained in the hospital for observation of the hematoma and pain control. She was discharged home on hospital day #2 on 04/05/2023 in stable condition. Cook catheter remained in place and discharged home with Cook to leg bag. follow-up in the office scheduled for 04/07/[address] Francesca Salvador.. Meaningful Use Info Meaningful Use Diagnoses (Choose all that apply): None applicable Discharge Plan Admission Admit Date/Time: 04/03/23 20:30 Attending Provider: Yessy Stock Primary Care Provider: Care Physician,Chloe Primary Discharge Orders/Prescriptions Prescriptions: New acetaminophen 500 mg Tablet 1,000 mg PO Q8 Qty: 0 0RF ibuprofen 600 mg Tablet 600 mg PO Q6H PRN PRN (Reason: Pain Score 1-10) Qty: 0 0RF oxycodone 5 mg Tablet 5 mg PO Q4H PRN PRN (Reason: Pain Score 4-10) 7 Days Qty: 20 0RF sulfamethoxazole-trimethoprim [Bactrim DS] 800-160 mg tablet 1 tab PO BID Qty: 14 0RF lvgpilfrre-apuidlbjqtmty-hdcq [Fioricet] 50-300-40 mg capsule 1 cap PO Q8H PRN (Reason: headache) Qty: 10 0RF Continued + DHA Referrals / Follow Up: Care Physician,No Primary [Primary Care Provider] - Disposition Disposition (needs filled in before D/C Order can be placed): Home, Self Care
[2023-04-05] MEDS: Acetaminophen/Butalbital/Caffe 1 Tablet 2 TABLET PO (09:00)
--- NOTE | 2023-04-05 11:42 | NURSING ---
Patient discharged per orders. Transport to main entrance via wheelchair and transport home via private vehicle.
== END 2023-04-05 08:15 | disposition home or self-care (01) ==
LOC: ED 19:24 → PCU 21:12
PROVIDERS: Obstetrics & Gynecology; Admitting Provider Obstetrics & Gynecology; Emergency Provider Emergency Medicine; Visit Provider Obstetrics & Gynecology
DX: N99.840 Postprocedural hematoma of a genitourinary system organ or structure following a genitourinary system procedure (principal); R51.9 Headache, unspecified; D62 Acute posthemorrhagic anemia; Y84.8 Other medical procedures as the cause of abnormal reaction of the patient, or of later complication, without mention of misadventure at the time of the procedure
CPT/HCPCS: 36415; 51702; 80048; 85025; 85027; 85610; 85730; 86850; 86900; 86901; 96361; 96374; 96375; 96376; 97802; 99221; 99285; J7030; A4216; G0378; J2405

== ENCOUNTER 2023-04-06 14:34 | Observation (INO) | payer OTHER, SELFPAY ==
[2023-04-06] VITALS (10 sets, daily range): BP systolic 115–125; BP diastolic 63–85; PULSE 64–127; RESP 14–18; TEMP 36.1–37.4; O2SAT 95–100; BMI 20.2; BMI 20.6; BMI 21.9
--- NOTE | 2023-04-06 14:53 | CT_ITS ---
EXAM: CT Abdomen And Pelvis W/ Contrast Injection HISTORY: labia hematoma, pain s/p bilateral labioplasty 04/03, hematoma and left incision opened TECHNIQUE: Routine protocol CT abdomen pelvis. IV Contrast: IV 75mL Isovue-370 . Oral Contrast: without. Sagittal and coronal images were reconstructed. RADIATION DOSAGE (If Supplied By Facility): CTDIvol = ( 8.78 ) mGy, DLP = ( 430.82 ) mGycm Individualized dose optimization techniques were used for this CT. COMPARISON: None. LIMITATIONS: None. FINDINGS: LOWER CHEST: Unremarkable. LIVER: Unremarkable. GALLBLADDER/BILE DUCTS: Unremarkable. PANCREAS: Unremarkable. SPLEEN: Unremarkable. ADRENAL GLANDS: Unremarkable. KIDNEYS / URETERS: Unremarkable. BOWEL / MESENTERY: Unremarkable. No bowel obstruction. Moderate amount of stool throughout the colon APPENDIX: Identified and normal. No evidence of acute appendicitis. PERITONEUM: No free air. Small amount of free fluid in the pelvis. VESSELS: Abdominal aorta is normal caliber. RETROPERITONEUM: Unremarkable. REPRODUCTIVE ORGANS: Fluid and air in the vagina with indistinct margins. Otherwise unremarkable. BLADDER: Partially decompressed with Cook catheter in place. Air in the bladder presumably related to the presence of the catheter. ABDOMINAL WALL: Diffuse edema in the perineum/ labia, with relative localized complex area that measures approximately 7 x 3 cm axial by 3.5 cm craniocaudal, appears more pronounced on the right, indistinct margins. No well-defined peripheral enhancement. The Cook catheter in the region is displaced leftward. Mild more diffuse subcutaneous edema extending anteriorly over the pubic symphysis to the inguinal regions bilaterally. Prominent inguinal lymph nodes bilaterally. No air in the soft tissues. BONES: No acute abnormality. OTHER: None. CT/Abdomen/Pelvis W IV Cont ONLY IMPRESSION: Complex collection and edema in the perineum at the labia bilaterally most likely postoperative collection hematoma and/or seroma. No well-defined enhancing rim to suggest abscess at this time. Fluid distended vagina likely related to postsurgical change. No acute intra-abdominal findings. Electronically Signed: Maricruz Alba MD at 16:33 EDT ,
--- NOTE | 2023-04-06 14:56 | EX.ED.DYSGE1 ---
HPI History of Present Illness Chief Complaint: Wound Check Detail of Chief Complaint: Postop wound check/pain Informant: patient and spouse/S.O. Narrative Narrative: Patient presents to the emergency department at the request of TERRITORY ACCOUNT REPRESENTATIVE on-call Dr. Moon. Patient tells me she had labioplasty performed by Dr. Francesca Salvador 4 days ago. Patient subsequently developed a hematoma and was brought to the emergency department as the sutures apparently had ruptured and the hematoma drained. She was admitted and observed and discharged home yesterday. Patient continues to have significant discomfort. Patient had a teleconference with Dr. Moon today who was able to evaluate the wound and was told to come to the emergency department for more testing and possible surgical intervention. Patient complains of significant discomfort. 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 Non-smoker Smoker Streptococcus group B infection of Streptococcus group B infection of infant (spontaneous vaginal delivery) Uterine contractions Home Medications + DHA 09/26/21 [History Last Taken 06/18/21] acetaminophen 500 mg tablet 1,000 mg (2 x 500 mg) PO Q8 #0 tabs 04/05/23 [Rx Last Taken Unknown] qnhrzmozqn-jvwjnejdjdfqu-vrzhgurs 50 mg-300 mg-40 mg capsule (Fioricet) 1 cap PO Q8H PRN headache #10 caps 04/05/23 [Rx Last Taken Unknown] ibuprofen 600 mg tablet 600 mg PO Q6H PRN PRN Pain Score 1-10 #0 tabs 04/05/23 [Rx Last Taken Unknown] oxycodone 5 mg tablet 5 mg PO Q4H PRN PRN Pain Score 4-10 7 days #20 tabs 04/05/23 [Rx Last Taken Unknown] sulfamethoxazole 800 mg-trimethoprim 160 mg tablet (Bactrim DS) 1 tab PO BID #14 tabs 04/05/23 [Rx Last Taken Unknown] Allergy/AdvReac Type Severity Reaction Status Date / Time No Known Allergies Allergy Verified 04/06/23 14:34 Surgical History H/O LEEP Social History Smoking Status: Never smoker ROS ROS ED Review of Systems ROS Unobtainable: other Constitutional Constitutional ED: Reports lethargy; Denies chills, fever(s), sweats or weight loss Eyes Eyes: Denies blurry vision, change in vision or diplopia ENT ENT ED: Denies rhinorrhea or sore throat Cardiovascular Cardiovascular: Denies chest pain, orthopnea or racing heartbeat Respiratory/Chest Respiratory/Chest: Denies cough, dyspnea, dyspnea on exertion, orthopnea or sputum Gastrointestinal Gastrointestinal: Denies abdominal pain, diarrhea, nausea or vomiting Genitourinary Genitourinary ED: Reports other Details: Labial pain/hematoma ; Denies dysuria, hematuria or urinary frequency Musculoskeletal Musculoskeletal: Denies arthralgias, back pain, myalgias or neck pain Integumentary Denies abscess, Abrasions or rash Neurologic Neurologic: Denies headache(s) or weakness Psychiatric Psychiatric: Denies anxiety, depression or suicidal thoughts Endocrine Endocrinology: Denies polydipsia, polyphagia or polyuria Hematologic/Lymphatic Hematologic/Lymphatic: Denies easy bleeding, easy bruising or lymphadenopathy Allergic/Immunologic Allergic/Immunologic ED: Denies mouth swelling, tongue swelling or urticaria EXAM Physical Exam Const Vital Signs: 04/06/23 14:35 Temperature 97.5 F L Temperature Source Temporal Pulse Rate 127 H Respiratory Rate 18 Blood Pressure 121/69 H Blood Pressure Mean 86 Pulse Ox 100 Positive well nourished and well developed General Appearance ED: well developed and NAD HEENT Reports TM's clear and moist mucous membranes normocephalic and atraumatic; Negative for trauma or tenderness Tympanic Membrane ED: Yes TM's clear Eyes PERRL and EOMs intact bilaterally General Eye ED: Negative for pale conjunctiva or scleral icterus Neck no lymphadenopathy, supple and no JVD General: Negative for tenderness Chest Wall inspection of chest normal and palpation of chest normal Chest: Negative for tenderness Resp normal respiratory effort and clear to auscultation bilaterally Effort and Inspection: Negative for respiratory distress or pain with movement Auscultation: Negative for rhonchi, wheezes or diminished lung sounds Cardio regular rate, regular rhythm, S1 normal heart sound, S2 normal heart sound and no murmurs Peripheral Pulses: pulses 2+ throughout GI normal to inspection, nondistended, normoactive bowel sounds, soft to palpation, non-tender, non-distended and no masses Narrative: Labial exam initially not performed as she was just seen today by her TERRITORY ACCOUNT REPRESENTATIVE. Back/Spine no CVA tenderness and no thoracic nor lumbar tenderness Extremity normal to inspection General Extremety ED: Negative for edema General Extremity: Negative for edema Neuro oriented x3, CN's II-XII intact bilaterally, no sensory deficits noted and gait normal Sensorium / Orientation: awake, alert, oriented to person, oriented to place and oriented to time Motor Exam: strength 5/5 throughout and strength abnormal Psych mental status grossly normal Skin no rashes or lesions noted and no wounds MDM MDM MDM Narrative Medical decision making narrative: Patient presents with postop labial hematoma concern for ongoing bleeding. Dr. Moon asked that we obtain basic labs and keep patient NPO. Was recommended we obtain a CT scan with IV contrast to evaluate further. Once results return we will discuss further with Dr. Moon. Patient was medicated with Dilaudid and Zofran. CBC with differential showed a white count of 8.7 with hemoglobin of 9.7 and platelets of 214. Chemistries unremarkable. CT scan of the abdomen pelvis with IV contrast showed edema of the labia with suspected hematoma/seroma. Case discussed with Dr. Moon who will evaluate patient to take the OR for hematoma evacuation and possible ongoing hemorrhage control. Lab Data Attestation: I reviewed the patient's lab results. Labs: Laboratory Results - last 24 hr 04/06/23 15:05 WBC 8.7 RBC 3.45 L Hgb 9.7 L Hct 30.2 L MCV 87.5 MCH 28.1 MCHC 32.1 RDW Std Deviation 41.2 RDW Coeff of Siena 13.2 Plt Count 214 MPV 11.6 Immature Gran % (Auto) 0.300 Neut % (Auto) 71.7 H Lymph % (Auto) 20.9 Isabella % (Auto) 6.1 Eos % (Auto) 0.8 Baso % (Auto) 0.2 Absolute Neuts (auto) 6.2 Absolute Lymphs (auto) 1.81 Nucleated RBC % 0 Sodium 140 Potassium 3.0 L Chloride 108 H Carbon Dioxide 27.0 Anion Gap 5 BUN 8 Creatinine 0.77 Estim Creat Clear Calc 98.23 Est GFR (MDRD) Af Amer 117 Est GFR (MDRD) Non-Af 97 BUN/Creatinine Ratio 10.4 Glucose 118 H Calcium 9.2 Radiography Diagnostic Testing: Clinical Impression(s) from Imaging Studies Abdomen/Pelvis CT 04/06/23 14:53 IMPRESSION: Complex collection and edema in the perineum at the labia bilaterally most likely postoperative collection hematoma and/or seroma. No well-defined enhancing rim to suggest abscess at this time. Fluid distended vagina likely related to postsurgical change. No acute intra-abdominal findings. Electronically Signed: Maricruz Alba MD at 16:33 EDT , Discharge Plan Triage Chief Complaint: Wound Check ED Provider: Stephanie Infante Dx/Rx/DC Orders Clinical Impression: Pelvic pain, Post-op bleeding, Tachycardia, Postoperative hematoma Prescriptions: No Action + DHA acetaminophen 500 mg Tablet 1,000 mg PO Q8 Qty: 0 0RF ibuprofen 600 mg Tablet 600 mg PO Q6H PRN PRN (Reason: Pain Score 1-10) Qty: 0 0RF oxycodone 5 mg Tablet 5 mg PO Q4H PRN PRN (Reason: Pain Score 4-10) 7 Days Qty: 20 0RF sulfamethoxazole-trimethoprim [Bactrim DS] 800-160 mg tablet 1 tab PO BID Qty: 14 0RF udmmlhspam-ohvlpnamacomr-rwqt [Fioricet] 50-300-40 mg capsule 1 cap PO Q8H PRN (Reason: headache) Qty: 10 0RF Primary Care Provider: Care Physician,No Primary Referrals: Care Physician,No Primary [Primary Care Provider] - Disposition Disposition: [facility]
[2023-04-06] MEDS: 0.9% Normal Saline 1,000 ML 150 ML IV (15:15)
[2023-04-06] MEDS: 0.9% Normal Saline 1,000 ML 1000 ML IV (15:15)
[2023-04-06] MEDS: Ondansetron 4 MG/2 ML Vial IV (15:24)
[2023-04-06] MEDS: HYDROmorphone 1 MG/ML Syringe IV (15:24)
[2023-04-06 15:26] LABS: Absolute Lymphocyte Count 1.81 X10^3/uL (0.83-4.51); Absolute Neutrophil Count 6.2 X10^3/uL (2.0-7.7); Basophil# 0.02 X10^3/uL; Basophil% 0.2 % (0-1); Eosinophil# 0.07 X10^3/uL; Eosinophils% 0.8 % (0-5); Hematocrit 30.2 % (37-47); Hemoglobin 9.7 g/dL (12.0-15.0); Lymphocyte # 1.81 X10^3/ul (0.83-4.51); Lymphocyte % 20.9 % (19-41); Mean Corp Hgb Conc 32.1 g/dL (32-36); Mean Corpuscular Hgb 28.1 pg (27.0-32.0); Mean Corpuscular Volume 87.5 fL (81-99); Mean Platelet Vol. 11.6 fl (6.2-12.0); Monocyte# 0.53 X10^3/uL; Monocyte% 6.1 % (0-10); NRBC Flagged by Analyzer 0 % (0-5); Neutrophil % 71.7 % (47-70); Platelet Count 214 K/mm3 (150-450); RBC Distribution Width CV 13.2 % (11.6-14.6); RBC Distribution Width SD 41.2 fl (35.1-43.9); Red Blood Count 3.45 M/mm3 (4.2-5.4); White Blood Count 8.7 K/mm3 (4.4-11.0)
[2023-04-06 15:39] LABS: Anion Gap 5 (5-15); BUN 8 mg/dL (7-18); BUN/Creat Ratio 10.4 RATIO (10-20); Calcium,Total 9.2 mg/dL (8.5-10.1); Chloride 108 mmol/L (98-107); Creatinine, Serum 0.77 mg/dL (0.55-1.02); EST Glomerular Filtration Rate 97 mL/min (>60); Est Glom Filt Rate - Afr Amer 117 mL/min (>60); Estimated Creatinine Clearance 98.23 ml/min; Glucose 118 mg/dL (74-106); Sodium Level 140 mmol/L (136-145)
--- NOTE | 2023-04-06 18:39 | PCM.HP.BLA ---
History and Physical Date of Admission: 04/06/23 27-year-old female status post elective labioplasty on March she was discharged home in stable condition and then returned later that evening with a hematoma she remained in the hospital for observation and pain control until Wednesday, April 05, 2023 and was discharged home. Patient today called complaining of increased pain and increased swelling as well as bleeding. She reports that closer to the rectum she feels that there is a new area that is swelling. reports that the size of the hematoma appeared to be expanding as well. Sent her into the emergency room where she had a CT done did not show any active extravasation but did show soft tissue swelling. Due to patient's discomfort and active oozing as well as increasing size of hematoma however stable hemoglobin decision made to proceed with evacuation of labial hematoma and revision of labioplasty. 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 Area on right labia minora that has clot, no active bleeding noted at current time. did not measure in ER but size still appears to be similar to discharge, maybe slightly larger. a/p: 27yo female with Right labia hematoma s/p labiaplasty on 04/03/23 1) patient was consented for evacuation of labial hematoma with revision of labioplasty. Consented for blood transfusion if necessary. Discussed giving tranexamic acid prior to surgery. We will maintain Cook catheter at this time due to swelling. Monitor the patient overnight repeat CBC in the morning. 2) risks of the surgery were reviewed with the patient including but not limited to infection, bleeding, recurrent hematoma. Expectations were reviewed. She was given the opportunity to ask all questions. consent signed. 3) Ancef 2g, tranexamic acid 1g 4) OR team notified. NPO status at 7pm
[2023-04-06] MEDS: Cefazolin 2 GM in 0.9% Normal Saline 100 ML IV (18:52)
--- NOTE | 2023-04-06 19:33 | OP.PCM_ITS ---
Report of Operation Date of Procedure: 04/06/23 Pre-Operative Diagnosis: labial hematoma Post-Operative Diagnosis: same Surgery/Procedure Performed:: evacuation of labial hematoma, revision of right labiaplasty Description of Surgical Findings:: Active drainage from Right labial hematoma. No tracking of hematoma- it was confined to right labia minora and majora. Surgeon: Sandee Jean station tender: Francesca Salvador Type of Anesthesia: General Special Medications: floseal Drains: christianson Estimated Blood Loss (mL): 50 Fluids Replaced: 500 Description of Procedure: To the operating room after informed consent was obtained. She was placed in the supine position general anesthesia was induced. She was then placed in the [facility] stirrups she was prepped and draped in normal sterile fashion. Christianson catheter was already in place due to the swelling. It was included in the sterile prep. Christianson is draining large amount of clear yellow urine. Legs are placed in the lithotomy position arms are in a neutral position to the side. At this time upon examination active drainage of clots was appreciated from the right labial hematoma. There was clots coming from the suture incision site on the labia minora. Upon palpation there was no tracking of the hematoma to the vagina or to the rectum. At this time decision was made to cut the previous sutures. At that point about 50 cc of clots were evacuated. Small amount of oozing was noted at the posterior aspect of the labia majora. 2-0 Vicryl suture was used in a running locked fashion to obtain hemostasis. 10 cc of Floseal was placed in the labia majora superior and inferiorly. Pressure was held. Excellent hemostasis was appreciated. There is no active bleeding appreciated. At this time 3-0 Vicryl suture was used to reapproximate the labia minora in a running locked fashion. Again excellent hemostasis was appreciated. Labia majora was soft ecchymosis was appreciated but expected. Christianson catheter will remain intact and reevaluated tomorrow morning. Instrument lap and needle count were correct x2. Dr. Salvador assisted with retraction of tissue and suturing Grafts/Implants Used: none Procedure Start Time: 19:12 Procedure Stop Time: 19:33 Complications none Admit VTE Documentation VTE Present on Admission: Yes VTE Mechan Device Prophylaxis: SCD's VTE Pharm Prophylaxis ordered?: No Reason prophylaxis not ordered:: Procedure Not Indicated
[2023-04-06] MEDS: Ondansetron ODT 4 MG Tablet PO (21:09)
[2023-04-06] MEDS: KCL 40mEq in 0.9% NS 40 MEQ/1,000 ML IV.SOLN 125 MEQ IV (21:09)
[2023-04-06] MEDS: Ketorolac 30 MG/ML Syringe IV (21:09)
[2023-04-07] MEDS: Acetaminophen 500 MG Tablet 1000 MG PO ×2 (00:01→05:06)
[2023-04-07] MEDS: Docusate Sodium 100 MG Capsule PO ×2 (01:13→10:05)
[2023-04-07 04:05] VITALS: BP 118/73; PULSE 78; RESP 16; TEMP 36.7; O2SAT 95
[2023-04-07] MEDS: Ketorolac 30 MG/ML Syringe IV (05:06)
[2023-04-07] MEDS: KCL 40mEq in 0.9% NS 40 MEQ/1,000 ML IV.SOLN 125 MEQ IV (05:14)
[2023-04-07 06:13] LABS: Hematocrit 26.3 % (37-47); Hemoglobin 8.3 g/dL (12.0-15.0); Mean Corp Hgb Conc 31.6 g/dL (32-36); Mean Corpuscular Hgb 28.3 pg (27.0-32.0); Mean Corpuscular Volume 89.8 fL (81-99); Mean Platelet Vol. 11.5 fl (6.2-12.0); Platelet Count 184 K/mm3 (150-450); RBC Distribution Width CV 13.4 % (11.6-14.6); RBC Distribution Width SD 43.7 fl (35.1-43.9); Red Blood Count 2.93 M/mm3 (4.2-5.4); White Blood Count 6.3 K/mm3 (4.4-11.0)
--- NOTE | 2023-04-07 08:32 | PN.OBGYN_ITS ---
Subjective Subjective Pain moderate> Feels better than when she arrived to ED. No Fever or chills. No N/V. Is hungry. Objective Data Objective Data Vital Signs: Vital Signs Temp Pulse Resp BP Pulse Ox O2 Del Method 98.1 F 78 16 118/73 95 Room Air 04/07/23 04:05 04/07/23 04:05 04/07/23 04:05 04/07/23 04:05 04/07/23 04:05 04/07/23 04:05 Oxygen Delivery Method Room Air Weight: 59.874 kg Body Mass Index (BMI) 21.9 Intake & Output: Intake and Output for Last 24 Hours 04/05/23 04/06/23 04/07/23 23:59 23:59 23:59 Intake Total 2220 / 2220 1000 / 1000 Output Total 1450 / 1450 Balance 770 / 770 1000 / 1000 Lab / Micro Data 04/07/23 05:18 04/06/23 15:05 Labs: Laboratory Results - last 24 hr 04/06/23 15:05: WBC 8.7, RBC 3.45 L, Hgb 9.7 L, Hct 30.2 L, MCV 87.5, MCH 28.1, MCHC 32.1, RDW Std Deviation 41.2, RDW Coeff of [place] 13.2, Plt Count 214, MPV 11.6, Immature Gran % (Auto) 0.300, Neut % (Auto) 71.7 H, Lymph % (Auto) 20.9, [place] % (Auto) 6.1, Eos % (Auto) 0.8, Baso % (Auto) 0.2, Absolute Neuts (auto) 6.2, Absolute Lymphs (auto) 1.81, Nucleated RBC % 0, Sodium 140, Potassium 3.0 L , Chloride 108 H, Carbon Dioxide 27.0, Anion Gap 5, BUN 8, Creatinine 0.77, Estim Creat Clear Calc 98.23, Est GFR (MDRD) Af Amer 117, Est GFR (MDRD) Non-Af 97, BUN/Creatinine Ratio 10.4, Glucose 118 H, Calcium 9.2 04/07/23 05:18: WBC 6.3, RBC 2.93 L, Hgb 8.3 L, Hct 26.3 L, MCV 89.8, MCH 28.3, MCHC 31.6 L, RDW Std Deviation 43.7, RDW Coeff of [place] 13.4, Plt Count 184, MPV 11.5 Radiography Diagnostic Testing: Radiology Impression Abdomen/Pelvis CT 04/06/23 14:53 IMPRESSION: Complex collection and edema in the perineum at the labia bilaterally most likely postoperative collection hematoma and/or seroma. No well-defined enhancing rim to suggest abscess at this time. Fluid distended vagina likely related to postsurgical change. No acute intra-abdominal findings. Electronically Signed: Maricruz Alba MD at 16:33 EDT , Physical Exam Narrative Vulva w/ bruising, purplish. Soft edema. No bleeding. No warmth. Induration same as yesterday. No spreading of hematoma. Const alert and no apparent distress Assessment & Plan (1) Postoperative hematoma: PLAN: POD#1 s/p evacuation of postop vulvar hematoma. Stable. Hypokalemia last night, replaced. Recheck K+ before d/c. Ambulate. voiding trial. Likely home later.
[2023-04-07 08:44] VITALS: O2SAT 95
[2023-04-07 10:00] VITALS: BP 116/72; PULSE 72; RESP 16; TEMP 37.2; O2SAT 100
[2023-04-07] MEDS: HYDROmorphone 0.5 MG/0.5 ML SYRINGE IV (10:07)
[2023-04-07] MEDS: 0.9% Saline Lock 10 ML Syringe IV (10:08)
[2023-04-07] MEDS: Acetaminophen/Butalbital/Caffe 1 Tablet 2 TABLET PO (11:52)
[2023-04-07 12:25] LABS: Hematocrit 28.7 % (37-47); Hemoglobin 8.8 g/dL (12.0-15.0); Mean Corp Hgb Conc 30.7 g/dL (32-36); Mean Corpuscular Hgb 27.5 pg (27.0-32.0); Mean Corpuscular Volume 89.7 fL (81-99); Mean Platelet Vol. 11.1 fl (6.2-12.0); Platelet Count 204 K/mm3 (150-450); RBC Distribution Width CV 13.4 % (11.6-14.6); RBC Distribution Width SD 43.8 fl (35.1-43.9); White Blood Count 5.6 K/mm3 (4.4-11.0)
--- NOTE | 2023-04-07 13:07 | PCM.DC.SUM ---
Providers Date of Admission: 04/06/23 Primary Care Physician: No Primary Care Phys Reason For Visit: POST OP EABIAL HEMATOMA Diagnosis Discharge Diagnosis (1) Postoperative hematoma: Status: Acute Plan: POD#1 s/p evacuation of postop vulvar hematoma. Stable. Hypokalemia last night, replaced. Recheck K+ before d/c. Ambulate. voiding trial. Likely home later. Medications at Discharge Home Medications + DHA 1 tab PO DAILY 09/26/21 cbelualdto-dqrzpkrofvpsp-lpplizcj 50 mg-300 mg-40 mg capsule (Fioricet) 1 cap PO Q8H PRN headache #10 caps 04/05/23 oxycodone 5 mg tablet 5 mg PO Q4H PRN PRN Pain Score 4-10 7 days #20 tabs 04/05/23 sulfamethoxazole 800 mg-trimethoprim 160 mg tablet (Bactrim DS) 1 tab PO BID #14 tabs 04/05/23 Hospital Course Summary of Care Provided Minutes Spent on Discharge: 14 Hospital Course: Patient admitted for I&D of postop vulvar hematoma. D/c home. f/u in 3 days or prn. Weight / BMI Weight Weight: 59.874 kg Body Mass Index (BMI) 21.9 ABG / Lab / Microbiology Data 04/07/23 12:12 04/06/23 15:05 Laboratory: Laboratory Results - last 24 hr 04/06/23 15:05: WBC 8.7, RBC 3.45 L, Hgb 9.7 L, Hct 30.2 L, MCV 87.5, MCH 28.1, MCHC 32.1, RDW Std Deviation 41.2, RDW Coeff of [place] 13.2, Plt Count 214, MPV 11.6, Immature Gran % (Auto) 0.300, Neut % (Auto) 71.7 H, Lymph % (Auto) 20.9, [place] % (Auto) 6.1, Eos % (Auto) 0.8, Baso % (Auto) 0.2, Absolute Neuts (auto) 6.2, Absolute Lymphs (auto) 1.81, Nucleated RBC % 0, Sodium 140, Potassium 3.0 L, Chloride 108 H, Carbon Dioxide 27.0, Anion Gap 5, BUN 8, Creatinine 0.77, Estim Creat Clear Calc 98.23, Est GFR (MDRD) Af Amer 117, Est GFR (MDRD) Non-Af 97, BUN/Creatinine Ratio 10.4, Glucose 118 H, Calcium 9.2 04/07/23 05:18: WBC 6.3, RBC 2.93 L, Hgb 8.3 L, Hct 26.3 L, MCV 89.8, MCH 28.3, MCHC 31.6 L, RDW Std Deviation 43.7, RDW Coeff of [place] 13.4, Plt Count 184, MPV 11.5 04/07/23 12:12: WBC 5.6, RBC 3.20 L, Hgb 8.8 L, Hct 28.7 L, MCV 89.7, MCH 27.5, MCHC 30.7 L, RDW Std Deviation 43.8, RDW Coeff of [place] 13.4, Plt Count 204, MPV 11.1 Radiography Diagnostic Testing: Radiology Impression Abdomen/Pelvis CT 04/06/23 14:53 IMPRESSION: Complex collection and edema in the perineum at the labia bilaterally most likely postoperative collection hematoma and/or seroma. No well-defined enhancing rim to suggest abscess at this time. Fluid distended vagina likely related to postsurgical change. No acute intra-abdominal findings. Electronically Signed: Maricruz Alba MD at 16:33 EDT , D/C Instructions Discharge Diet: No restrictions Discharge Activity: May Drive, May Shower and May Take a Tub Bath (in 1 week) May resume sexual activity in: 2 weeks Call your doctor if your incision/area has: Continuous Slow Oozing, Sudden Increased Bleeding and Foul Smelling Discharge Call your doctor if you observe: Fever of 101 or Higher and Inability to urinate Cleanse incision/area with: Soap & Water Please Follow Up With: Francesca Salvador MD When: 3 days as scheduled or as needed. Call [phone] with any concerns or send a [employer] message. Meaningful Use Info Meaningful Use Diagnoses (Choose all that apply): None applicable Discharge Plan Admission Admit Date/Time: 04/06/23 17:34 Primary Reason for Your Visit: Evacuation of vulvar hematoma Attending Provider: Sandee Jean Primary Care Provider: Care Physician,Chloe Primary Discharge Orders/Prescriptions Prescriptions: No Action + DHA 1 tab PO DAILY oxycodone 5 mg Tablet 5 mg PO Q4H PRN PRN (Reason: Pain Score 4-10) 7 Days Qty: 20 0RF sulfamethoxazole-trimethoprim [Bactrim DS] 800-160 mg tablet 1 tab PO BID Qty: 14 0RF kggpbdbkqs-ffbxogzkgeaoj-rwsg [Fioricet] 50-300-40 mg capsule 1 cap PO Q8H PRN (Reason: headache) Qty: 10 0RF Referrals / Follow Up: Care Physician,No Primary [Primary Care Provider] - Disposition Disposition (needs filled in before D/C Order can be placed): Home, Self Care
[2023-04-07 13:15] LABS: Potassium 3.6 mmol/L (3.5-5.1)
== END 2023-04-07 13:40 | disposition home or self-care (01) ==
LOC: ED 17:18 → MS3 17:35
PROVIDERS: Obstetrics & Gynecology; Admitting Provider Obstetrics & Gynecology; Emergency Provider Emergency Medicine; Visit Provider Obstetrics & Gynecology
PROC: (CPT 10140; principal; 2023-04-06 19:00)
DX: N99.840 Postprocedural hematoma of a genitourinary system organ or structure following a genitourinary system procedure (principal); E87.6 Hypokalemia; Y83.8 Other surgical procedures as the cause of abnormal reaction of the patient, or of later complication, without mention of misadventure at the time of the procedure; Z86.14 Personal history of Methicillin resistant Staphylococcus aureus infection
CPT/HCPCS: 10140; 00400; 36415; 74177; 80048; 84132; 85025; 85027; 94668; 96361; 96365; 96366; 96375; 96376; 99252; 99283; J7030; J7120; Q9967; A4216; G0463; J2405

== ENCOUNTER 2024-01-12 17:53 | Outpatient (CLI) | payer OTHER, SELFPAY ==
[2024-01-12] VITALS (10 sets, daily range): BP systolic 112–146; BP diastolic 67–80; PULSE 83–108; RESP 16–18; TEMP 36.9–37.3; O2SAT 100; BMI 27.8
[2024-01-12] MEDS: Lactated Ringers 500 ML 999 ML IV (18:55)
[2024-01-12 19:12] LABS: Hemoglobin 9.6 g/dL (12.0-15.0); Mean Corpuscular Hgb 23.2 pg (27.0-32.0); Mean Corpuscular Volume 77.5 fL (81-99); Mean Platelet Vol. 12.1 fl (6.2-12.0); Platelet Count 211 K/mm3 (150-450); RBC Distribution Width CV 15.6 % (11.6-14.6); Red Blood Count 4.13 M/mm3 (4.2-5.4); White Blood Count 10.4 K/mm3 (4.4-11.0)
[2024-01-12 19:25] LABS: AST(SGOT) 26 U/L (15-37); Alanine Aminotransfer ALT/SGPT 19 U/L (13-56); Creatinine, Serum 0.53 mg/dL (0.55-1.02); EST Glomerular Filtration Rate 147 mL/min (>60); Est Glom Filt Rate - Afr Amer 178 mL/min (>60); Estimated Creatinine Clearance 162.35 ml/min; Uric Acid 3.7 mg/dL (2.6-6.0)
[2024-01-12 19:58] LABS: Protein, Urine (Random) 10.1 mg/dL (<11.9); Protein:Creat Ratio 142 mg/g CRE (0-200)
--- NOTE | 2024-01-22 10:28 | OB.TRI.NOTE ---
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) MRSA infection Non-smoker Smoker Streptococcus group B infection of infant Streptococcus group B infection of infant (spontaneous vaginal delivery) Uterine contractions Home Medications ?Medication ?Instructions ?Recorded ?Last Taken ?Type + DHA 1 tab PO DAILY 09/26/21 06/18/21 History jvwbumcyob-cejtwxxoxwxie-uruogzwn 1 cap PO Q8H PRN headache #10 caps 04/05/23 Unknown Rx 50 mg-300 mg-40 mg capsule (Fioricet) oxycodone 5 mg tablet 5 mg PO Q4H PRN PRN Pain Score 04/05/23 Unknown Rx 4-10 7 days #20 tabs sulfamethoxazole 800 1 tab PO BID #14 tabs 04/05/23 Unknown Rx mg-trimethoprim 160 mg tablet (Bactrim DS) Allergy/AdvReac Type Severity Reaction Status Date / Time No Known Allergies Allergy Verified 04/06/23 14:34 Surgical History H/O LEEP Social History Smoking Status: Never smoker History Elective abortions Hx Para 1 Spontaneous abortions Hx # Term Pregnancies Ectopic pregnancies Hx # Pregnancies Multiple births # of living children NST FHR Rate Baby A Baseline: 140 Variability:: Moderate Accelerations:: 15 x 15 Decelerations:: None NST Reactive:: Yes FHR Category:: Category I Uterine Activity:: irreg ctxs Assessment & Plan (1) Threatened labor, antepartum: PLAN: Threatened labor. No evidence of active labor. Discharged home to follow-up in the office or return as needed.
== END 2024-01-12 20:33 | disposition home or self-care (01) ==
LOC: WPOUT 17:55 → WP 17:56
PROVIDERS: Visit Provider Advanced Practice Midwife
DX: O47.03 False labor before 37 completed weeks of gestation, third trimester (principal); Z3A.36 36 weeks gestation of pregnancy
CPT/HCPCS: 96365; 36415; 59025; 59050; 82565; 82570; 84156; 84450; 84460; 84550; 85027; 99221; J7120; G0378

== ENCOUNTER 2024-01-29 16:45 | Outpatient (CLI) | payer OTHER, SELFPAY ==
[2024-01-29 17:09] VITALS: BP 146/81; PULSE 91
[2024-01-29 17:10] VITALS: PULSE 80; RESP 15; TEMP 36.6; O2SAT 100
[2024-01-29 17:32] VITALS: BMI 27.9
[2024-01-29 18:11] VITALS: BP 132/82; PULSE 88
--- NOTE | 2024-01-30 08:18 | OB.TRI.NOTE ---
HPI - General HPI Narrative THUY BOND, is a 28 F @ 38.5 weeks who presents from office for monitoring due to irregular contractions and being 5cm. 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) MRSA infection Non-smoker Smoker Streptococcus group B infection of infant Streptococcus group B infection of (spontaneous vaginal delivery) Uterine contractions Home Medications ?Medication ?Instructions ?Recorded ?Last Taken ?Type + DHA 1 tab PO DAILY 09/26/21 01/29/24 History magnesium 200 mg tablet 200 mg PO DAILY 01/29/24 01/29/24 History ferrous sulfate 325 mg (65 mg 325 mg PO DAILY 01/30/24 01/29/24 History iron) tablet (Feosol) Allergy/AdvReac Type Severity Reaction Status Date / Time No Known Allergies Allergy Verified 01/30/24 03:08 Surgical History H/O LEEP Social History Smoking Status: Never smoker History Elective abortions Hx Para 2 Spontaneous abortions Hx # Term Pregnancies Ectopic pregnancies Hx # Pregnancies Multiple births # of living children Physical Exam Narrative pt was monitored and there were irregular contractions with no change in Cervical exam- NST FHR Rate Baby A Baseline: 140 Variability:: Moderate Accelerations:: 15 x 15 Decelerations:: None NST Reactive:: Yes FHR Category:: Category I Uterine Activity:: irregular Assessment & Plan (1) Positive GBS test: (2) 38 weeks gestation of : (3) Irregular contractions: PLAN: Plan @ 38.5 weeks- false labor 1) unchanged cervical exam- dc home 2) labor precautions
== END 2024-01-29 19:00 | disposition home or self-care (01) ==
LOC: WPOUT 16:49 → WP 16:50
PROVIDERS: Referring Provider Obstetrics & Gynecology; Visit Provider Obstetrics & Gynecology
DX: O47.1 False labor at or after 37 completed weeks of gestation (principal); Z3A.38 38 weeks gestation of pregnancy
CPT/HCPCS: 59025; 59050; 99221; G0378

== ENCOUNTER 2024-01-30 07:03 | Inpatient (IN) | payer OTHER, SELFPAY ==
[2024-01-30] VITALS (81 sets, daily range): BP systolic 106–159; BP diastolic 57–86; PULSE 63–122; RESP 16–18; TEMP 36.4–37.2; O2SAT 82–100; BMI 27.9
[2024-01-30] MEDS: Lactated Ringers 1,000 ML 999 ML IV (03:22)
[2024-01-30 03:34] LABS: Absolute Lymphocyte Count 2.26 X10^3/uL (0.83-4.51); Absolute Neutrophil Count 8.8 X10^3/uL (2.0-7.7); Basophil# 0.03 X10^3/uL; Basophil% 0.2 % (0-1); Eosinophils% 0.8 % (0-5); Hematocrit 33.4 % (37-47); Lymphocyte # 2.26 X10^3/ul (0.83-4.51); Lymphocyte % 18.7 % (19-41); Mean Corp Hgb Conc 29.9 g/dL (32-36); Mean Corpuscular Volume 76.8 fL (81-99); Mean Platelet Vol. 13.5 fl (6.2-12.0); Monocyte# 0.86 X10^3/uL; Monocyte% 7.1 % (0-10); NRBC Flagged by Analyzer 0 % (0-5); Neutrophil # 8.76 X10^3/uL (2.7-7.7); Neutrophil % 72.6 % (47-70); Platelet Count 186 K/mm3 (150-450); RBC Distribution Width CV 16.5 % (11.6-14.6); RBC Distribution Width SD 44.9 fl (35.1-43.9); Red Blood Count 4.35 M/mm3 (4.2-5.4); White Blood Count 12.1 K/mm3 (4.4-11.0)
[2024-01-30] MEDS: Penicillin G Pot 5,000,000 UNITS in 0.9% Normal Saline (100mL MB+) 100 ML 150 UNITS IV (03:35)
[2024-01-30] MEDS: fentaNYL-bupivacaine (epidural) 100 ML BAG EPIDURAL (03:52)
[2024-01-30 04:05] LABS: Syphilis Antibodies Non-reactive
[2024-01-30] MEDS: Lactated Ringers 1,000 ML 200 ML IV (04:51)
[2024-01-30] MEDS: Oxytocin 15 Units/NS 250ml 15 UNITS/250 ML IV.SOLN 334 UNITS IV (06:45)
--- NOTE | 2024-01-30 06:57 | PCM.HP.OB ---
HPI - General General Date of Admission: 01/30/24 HPI Narrative THUY BOND, is a 28 F @ 38.6 weeks who presents c/o contractions was seen on L&D earlier 5cm with irregular ctx, sent home- ctx got more regular- upon arrival was 5-6/90/-1. 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) MRSA infection Non-smoker Smoker Streptococcus group B infection of infant Streptococcus group B infection of (spontaneous vaginal delivery) Uterine contractions Home Medications ?Medication ?Instructions ?Recorded ?Last Taken ?Type + DHA 1 tab PO DAILY 09/26/21 01/29/24 History magnesium 200 mg tablet 200 mg PO DAILY 01/29/24 01/29/24 History ferrous sulfate 325 mg (65 mg 325 mg PO DAILY 01/30/24 01/29/24 History iron) tablet (Feosol) Allergy/AdvReac Type Severity Reaction Status Date / Time No Known Allergies Allergy Verified 01/30/24 03:08 Surgical History H/O LEEP Social History Smoking Status: Never smoker History Elective abortions Hx Para 2 Spontaneous abortions Hx # Term Pregnancies Ectopic pregnancies Hx # Pregnancies Multiple births # of living children Vital Signs Vital Signs Vital Signs: 01/30/24 03:01 01/30/24 03:01 01/30/24 03:01 Temperature Temperature Source Pulse Rate 103 H 103 H Respiratory Rate Blood Pressure 142/82 H BP Systolic 142 BP Diastolic 82 Pulse Ox 01/30/24 03:01 01/30/24 03:32 01/30/24 03:32 Temperature Temperature Source Pulse Rate 122 H Respiratory Rate Blood Pressure BP Systolic BP Diastolic Pulse Ox 99 100 01/30/24 03:37 01/30/24 03:37 01/30/24 03:42 Temperature Temperature Source Pulse Rate 99 Respiratory Rate Blood Pressure 140/79 H BP Systolic 140 BP Diastolic 79 Pulse Ox 100 01/30/24 03:42 01/30/24 03:42 01/30/24 03:47 Temperature Temperature Source Pulse Rate 85 101 H Respiratory Rate Blood Pressure BP Systolic BP Diastolic Pulse Ox 100 01/30/24 03:47 01/30/24 03:49 01/30/24 03:49 Temperature Temperature Source Pulse Rate 82 Respiratory Rate Blood Pressure 145/73 H BP Systolic 145 BP Diastolic 73 Pulse Ox 100 01/30/24 03:49 01/30/24 03:50 01/30/24 03:50 Temperature Temperature Source Pulse Rate 97 Respiratory Rate 18 Blood Pressure BP Systolic BP Diastolic Pulse Ox 93 01/30/24 03:52 01/30/24 03:52 01/30/24 03:54 Temperature Temperature Source Pulse Rate 79 Respiratory Rate Blood Pressure 146/82 H BP Systolic 146 BP Diastolic 82 Pulse Ox 100 01/30/24 03:54 01/30/24 03:54 01/30/24 03:57 Temperature Temperature Source Pulse Rate 89 92 Respiratory Rate 18 Blood Pressure BP Systolic BP Diastolic Pulse Ox 01/30/24 03:57 01/30/24 03:59 01/30/24 03:59 Temperature Temperature Source Pulse Rate 81 Respiratory Rate Blood Pressure 130/74 H BP Systolic 130 BP Diastolic 74 Pulse Ox 100 01/30/24 03:59 01/30/24 04:02 01/30/24 04:02 Temperature Temperature Source Pulse Rate 83 Respiratory Rate 18 Blood Pressure BP Systolic BP Diastolic Pulse Ox 100 01/30/24 04:05 01/30/24 04:05 01/30/24 04:05 Temperature Temperature Source Pulse Rate 77 Respiratory Rate 18 Blood Pressure 128/79 H BP Systolic 128 BP Diastolic 79 Pulse Ox 01/30/24 04:07 01/30/24 04:07 01/30/24 04:09 Temperature Temperature Source Pulse Rate 81 Respiratory Rate Blood Pressure 128/81 H BP Systolic 128 BP Diastolic 81 Pulse Ox 100 01/30/24 04:09 01/30/24 04:09 01/30/24 04:09 Temperature Temperature Source Temporal Pulse Rate 87 Respiratory Rate 16 Blood Pressure BP Systolic BP Diastolic Pulse Ox 01/30/24 04:09 01/30/24 04:12 01/30/24 04:12 Temperature 98.7 F Temperature Source Pulse Rate 78 Respiratory Rate Blood Pressure BP Systolic BP Diastolic Pulse Ox 100 01/30/24 04:14 01/30/24 04:14 01/30/24 04:14 Temperature Temperature Source Pulse Rate 77 Respiratory Rate 16 Blood Pressure 123/74 H BP Systolic 123 BP Diastolic 74 Pulse Ox 01/30/24 04:17 01/30/24 04:17 01/30/24 04:20 Temperature Temperature Source Pulse Rate 79 Respiratory Rate Blood Pressure 159/86 H BP Systolic 159 BP Diastolic 86 Pulse Ox 100 01/30/24 04:20 01/30/24 04:20 01/30/24 04:22 Temperature Temperature Source Pulse Rate 85 92 Respiratory Rate 18 Blood Pressure BP Systolic BP Diastolic Pulse Ox 01/30/24 04:22 01/30/24 04:23 01/30/24 04:23 Temperature Temperature Source Pulse Rate 85 Respiratory Rate Blood Pressure BP Systolic BP Diastolic Pulse Ox 100 82 01/30/24 04:27 01/30/24 04:27 01/30/24 04:27 Temperature Temperature Source Pulse Rate 110 H Respiratory Rate 18 Blood Pressure BP Systolic BP Diastolic Pulse Ox 100 01/30/24 04:30 01/30/24 04:30 01/30/24 04:32 Temperature Temperature Source Pulse Rate 102 H 75 Respiratory Rate Blood Pressure BP Systolic BP Diastolic Pulse Ox 83 01/30/24 04:32 01/30/24 04:33 01/30/24 04:33 Temperature Temperature Source Pulse Rate 75 Respiratory Rate Blood Pressure 110/57 L BP Systolic 110 BP Diastolic 57 Pulse Ox 100 01/30/24 04:33 01/30/24 04:37 01/30/24 04:37 Temperature Temperature Source Pulse Rate 77 Respiratory Rate 18 Blood Pressure BP Systolic BP Diastolic Pulse Ox 100 01/30/24 04:42 01/30/24 04:42 01/30/24 04:47 Temperature Temperature Source Pulse Rate 77 89 Respiratory Rate Blood Pressure BP Systolic BP Diastolic Pulse Ox 100 01/30/24 04:47 01/30/24 04:52 01/30/24 04:52 Temperature Temperature Source Pulse Rate 78 Respiratory Rate Blood Pressure BP Systolic BP Diastolic Pulse Ox 100 100 01/30/24 04:55 01/30/24 04:55 01/30/24 04:55 Temperature Temperature Source Temporal Pulse Rate 77 Respiratory Rate Blood Pressure 119/67 BP Systolic 119 BP Diastolic 67 Pulse Ox 01/30/24 04:55 01/30/24 04:55 01/30/24 04:57 Temperature 98.1 F Temperature Source Pulse Rate 77 Respiratory Rate 16 Blood Pressure BP Systolic BP Diastolic Pulse Ox 01/30/24 04:57 01/30/24 05:00 01/30/24 05:00 Temperature Temperature Source Pulse Rate 79 Respiratory Rate Blood Pressure 122/65 H BP Systolic 122 BP Diastolic 65 Pulse Ox 100 01/30/24 05:02 01/30/24 05:02 01/30/24 05:06 Temperature Temperature Source Pulse Rate 72 Respiratory Rate Blood Pressure 120/65 BP Systolic 120 BP Diastolic 65 Pulse Ox 100 01/30/24 05:06 01/30/24 05:07 01/30/24 05:07 Temperature Temperature Source Pulse Rate 84 84 Respiratory Rate Blood Pressure BP Systolic BP Diastolic Pulse Ox 99 01/30/24 05:10 01/30/24 05:10 01/30/24 05:12 Temperature Temperature Source Pulse Rate 78 74 Respiratory Rate Blood Pressure 114/64 BP Systolic 114 BP Diastolic 64 Pulse Ox 01/30/24 05:12 01/30/24 05:15 01/30/24 05:15 Temperature Temperature Source Pulse Rate 80 Respiratory Rate Blood Pressure 109/60 BP Systolic 109 BP Diastolic 60 Pulse Ox 99 01/30/24 05:17 01/30/24 05:17 01/30/24 05:20 Temperature Temperature Source Pulse Rate 74 Respiratory Rate Blood Pressure 108/59 L BP Systolic 108 BP Diastolic 59 Pulse Ox 100 01/30/24 05:20 01/30/24 05:22 01/30/24 05:22 Temperature Temperature Source Pulse Rate 70 73 Respiratory Rate Blood Pressure BP Systolic BP Diastolic Pulse Ox 100 01/30/24 05:26 01/30/24 05:26 01/30/24 05:27 Temperature Temperature Source Pulse Rate 67 66 Respiratory Rate Blood Pressure 124/69 H BP Systolic 124 BP Diastolic 69 Pulse Ox 01/30/24 05:27 01/30/24 05:30 01/30/24 05:30 Temperature Temperature Source Pulse Rate 73 Respiratory Rate Blood Pressure 107/57 L BP Systolic 107 BP Diastolic 57 Pulse Ox 100 01/30/24 05:30 01/30/24 05:30 01/30/24 05:30 Temperature 98.0 F Temperature Source Temporal Pulse Rate Respiratory Rate 16 Blood Pressure BP Systolic BP Diastolic Pulse Ox 01/30/24 05:32 01/30/24 05:32 01/30/24 06:34 Temperature Temperature Source Pulse Rate 84 Respiratory Rate Blood Pressure 114/76 BP Systolic 114 BP Diastolic 76 Pulse Ox 100 01/30/24 06:34 01/30/24 06:34 01/30/24 06:34 Temperature Temperature Source Temporal Pulse Rate 114 H 107 H Respiratory Rate Blood Pressure BP Systolic BP Diastolic Pulse Ox 01/30/24 06:34 01/30/24 06:34 01/30/24 06:34 Temperature 98.0 F Temperature Source Pulse Rate Respiratory Rate 16 Blood Pressure BP Systolic BP Diastolic Pulse Ox 98 01/30/24 06:51 01/30/24 06:51 01/30/24 06:51 Temperature Temperature Source Pulse Rate 89 93 Respiratory Rate Blood Pressure 115/63 BP Systolic 115 BP Diastolic 63 Pulse Ox 01/30/24 06:51 Temperature Temperature Source Pulse Rate Respiratory Rate Blood Pressure BP Systolic BP Diastolic Pulse Ox 98 Weight Weight: 76.204 kg Body Mass Index (BMI) 27.9 Physical Exam Const alert and oriented x3 General Appearance: cooperative HEENT normocephalic GI GI Narrative: Gravid, non tender to palpation. OB / External & Speculum: external exam normal Extremity normal to inspection Skin no rashes or lesions noted Neuro oriented x3 and CN's II-XII intact bilaterally Psych Appearance: grossly normal Labs Labs Labs: Blood Type O POSITIVE Antibody Screen POSITIVE Hct 33.4 % (37-47) L Hgb 10.0 g/dL (12.0-15.0) L Syphilis Total Ab Non-reactive Rhogam given: No Assessment & Plan (1) 38 weeks gestation of : (2) Positive GBS test: (3) Active labor at term: PLAN: Plan Admit to L&D Mont[place] FHR/TOCO Epidural if requested for pain Monitor VS Anticipate pcn for + GBS
--- NOTE | 2024-01-30 06:59 | EX.PCM.OBRPT ---
Vaginal Delivery Maternal Presentation Maternal Presentation: Active Labor Operative Information Date of Procedure: 01/30/24 Pre-Operative Diagnosis: 38.6 weeks gestation, Active labor, GBS positive Post-Operative Diagnosis: same, live female infant Surgery / Procedure Performed: Spontaneous Vaginal Delivery Type of Anesthesia: Epidural Estimated Blood Loss: 50 Time of Delivery: 06:43 Findings Description of Procedure: Patient progressed to fully dilated membranes still intact. Upon my arrival good maternal pushing efforts, membranes spontaneously ruptured with clear fluid. 's head delivered without difficulty followed by the anterior shoulder, posterior shoulder and the rest the infant's body without delay. was vigorous at time of delivery and placed on the mother's chest for immediate skin to skin. Delayed cord clamping was performed. Once the cord was clamped and cut Pitocin was started. The placenta delivered without complication intact. No perineal or vaginal lacerations appreciated. Fundus was firm. Presentation: Vertex Amniotic Membrane Rupture Type: Spontaneous Amniotic Fluid Description: Clear Placental Delivery Description: Spontaneous Placenta Disposition: [facility] Specimen(s) Removed: Placenta Cord Vessel Description: 3 Vessels Cord Entanglement: None Infant A Gender: Female (1 minute): 9 (5 minute): 10 Delayed Cord Clamping: Yes Post Vaginal Delivery Medications Given After Delivery: IV Pitocin Episiotomy Description: None Laceration: None Complication Complications: None
[2024-01-30] MEDS: Oxytocin 15 Units/NS 250ml 15 UNITS/250 ML IV.SOLN 83 UNITS IV (07:15)
[2024-01-30] MEDS: Acetaminophen 500 MG Tablet 1000 MG PO ×3 (08:08→20:20)
[2024-01-30] MEDS: Methylergonovine 0.2 MG/ML Ampul IM (08:39)
--- NOTE | 2024-01-30 09:18 | NURSING ---
this RN called dr chang to inform her that her blood is positive for antibodies. lab inquiring about whether to type and cross two units. dr chang states not to at this time since bleeding is minimal and EBL WNL.
--- NOTE | 2024-01-30 09:19 | NURSING ---
report given to marni watson. RN to assume care of couplet at this time.
[2024-01-30] MEDS: Ibuprofen 600 MG Tablet PO (17:07)
[2024-01-30] MEDS: Senna/Docusate Sodium 1 Tablet PO (17:07)
[2024-01-31] VITALS: BP 128/79; PULSE 63; RESP 16; TEMP 36.3; O2SAT 97
[2024-01-31 04:26] VITALS: BP 124/71; PULSE 68; RESP 16; TEMP 36.4; O2SAT 97
[2024-01-31] MEDS: Ibuprofen 600 MG Tablet PO ×2 (04:36→14:35)
[2024-01-31 07:52] VITALS: BP 125/83; PULSE 68; RESP 18; TEMP 36.3; O2SAT 99
[2024-01-31] MEDS: Acetaminophen 500 MG Tablet 1000 MG PO (08:05)
--- NOTE | 2024-01-31 11:31 | PCM.PN.OB ---
Subjective Subjective Denies complaints Objective Data Objective Data Vital Signs: Vital Signs Temp Pulse Resp BP Pulse Ox O2 Del Method 97.4 F L 68 18 125/83 H 99 Room Air 01/31/24 07:52 01/31/24 07:52 01/31/24 07:52 01/31/24 07:52 01/31/24 07:52 01/31/24 07:52 Oxygen Delivery Method Room Air Weight: 168 lb Body Mass Index (BMI) 27.9 Intake & Output: Intake and Output for Last 24 Hours 01/29/24 01/30/24 01/31/24 23:59 23:59 23:59 Intake Total 1895.33 / 1895.33 Output Total 1200 / 1200 Balance 695.33 / 695.33 Lab / Micro Data 01/30/24 03:15 Physical Exam Const alert, oriented x3 and no apparent distress HEENT normocephalic GI soft to palpation, non-tender and non-distended GI Narrative: fundus firm, mid & below umbilicus Extremity normal to inspection and no calf tenderness Assessment & Plan (1) Vaginal delivery: COMMENT: PPD#1 PLAN: D/c home
--- NOTE | 2024-01-31 11:33 | PCM.DC.SUM ---
Providers Date of Admission: 01/30/24 Primary Care Physician: Chloe Primary Care Phys Reason For Visit: VAGINAL DELIVERY Diagnosis Discharge Diagnosis (1) Vaginal delivery: Status: Acute Code(s): O80 - Encounter for full-term uncomplicated delivery Plan: D/c home Medications at Discharge Home Medications + DHA 1 tab PO DAILY 09/26/21 magnesium 200 mg tablet 200 mg PO DAILY 01/29/24 ferrous sulfate 325 mg (65 mg iron) tablet (Feosol) 325 mg PO DAILY 01/30/24 acetaminophen 500 mg tablet 1,000 mg (2 x 500 mg) PO Q6H PRN PRN Pain 1-10 Or Fever #0 tabs 01/31/24 ibuprofen 600 mg tablet 600 mg PO Q6H PRN PRN Pain 1-10 Or Fever #0 tabs 01/31/24 Hospital Course Operations None Procedures None Summary of Care Provided Minutes Spent on Discharge: 15 Weight / BMI Weight Weight: 168 lb Body Mass Index (BMI) 27.9 ABG / Lab / Microbiology Data 01/30/24 03:15 D/C Instructions Discharge Diet: No restrictions Discharge Activity: May Shower May resume sexual activity in: 6 weeks Weight Bearing Status: Weight bearing as tolerated Call your doctor if you observe: Fever of 101 or Higher, Coldness, Increased Pain, Change in Color, Inability to urinate, Inability to have a bowel movement, Using more than 1 pad per hour, Shortness of breath, Dizziness, Fainting spells, Chest pain, Increased palpitations (irregular heartbeat), Calf discomfort and Uncontrolled pain Please Follow Up With: Sandee Jean MD When: Follow up in 2 and 6 weeks for visits. Meaningful Use Info Meaningful Use Meaningful Use Diagnoses (Choose all that apply): None applicable Ischemic Stroke Statin Dosing Therapy Reference: STATIN DOSE THERAPY REFERENCE: * Patients > 75 years receive moderate or high dose statin therapy. * Patients 75 years or YOUNGER should receive HIGH intensity statin dose unless contraindicated. You will be required to document reason for non-treatment if statin daily dose does not meet guidelines. HIGH DOSE STATIN THERAPY DAILY Atorvastatin > than or = to 40 mg Rosuvastatin > than or = to 20 mg Amlodipine + Atorvastatin > than or = to 2.5/40 mg Ezetimibe + Simvastatin 10/80 mg Simvastatin 80mg Discharge Plan Admission Admit Date/Time: 01/30/24 07:03 Primary Reason for Your Visit: Vaginal delivery Attending Provider: Sandee Jean Primary Care Provider: Care PhysicianChloe Primary Discharge Orders/Prescriptions Prescriptions: New acetaminophen 500 mg Tablet 1,000 mg PO Q6H PRN PRN (Reason: Pain 1-10 Or Fever) Qty: 0 0RF ibuprofen 600 mg Tablet 600 mg PO Q6H PRN PRN (Reason: Pain 1-10 Or Fever) Qty: 0 0RF Continued + DHA 1 tab PO DAILY magnesium 200 mg tablet 200 mg PO DAILY ferrous sulfate [Feosol] 325 mg (65 mg iron) tablet 325 mg PO DAILY Referrals / Follow Up: Care Physician,No Primary [Primary Care Provider] - Disposition Disposition (needs filled in before D/C Order can be placed): Home, Self Care
[2024-01-31 14:38] VITALS: BP 130/84; PULSE 78; RESP 20; TEMP 36.3; O2SAT 100
--- NOTE | 2024-02-04 14:38 | NURSING ---
follow up phone call made, no answer, voicemail left
== END 2024-01-31 18:14 | disposition home or self-care (01) | DRG 807 ==
PROVIDERS: Admitting Provider Obstetrics & Gynecology; Referring Provider Obstetrics & Gynecology; Visit Provider Obstetrics & Gynecology
DX: O99.824 Streptococcus B carrier state complicating childbirth (principal); Z37.0 Single live birth; Z3A.38 38 weeks gestation of pregnancy
CPT/HCPCS: 59025; 59050; 85025; 86780; 86850; 86870; 86900; 86901; 99221; J7120; G0378

== ENCOUNTER 2024-09-12 19:17 | Emergency (ER) | payer OTHER, SELFPAY ==
[2024-09-12 19:17] VITALS: BP 132/84; PULSE 97; RESP 16; TEMP 36.6; O2SAT 98; BMI 20.2
--- NOTE | 2024-09-12 20:24 | CT_ITS ---
EXAM: CT ABDOMEN AND PELVIS WITH INTRAVENOUS CONTRAST CLINICAL INDICATION: Epigastric/right upper quadrant abdominal pain TECHNIQUE: Helically acquired images were obtained of the abdomen and pelvis with intravenous contrast. This CT exam was performed using one or more of the following dose reduction techniques: automated exposure control, adjustment of the mA and/or kV according to patient size, and/or use of iterative reconstruction technique. CONTRAST: IV 100mL Isovue-370 RADIATION DOSE: CTDIvol = 8.34 mGy, DLP = 345.69 mGy-cm COMPARISON: No relevant prior studies available. FINDINGS: LOWER THORAX: Unremarkable. Lung bases are clear. No cardiomegaly. No significant pericardial effusion. ABDOMEN: LIVER: Unremarkable. Homogeneous. No focal mass. GALLBLADDER AND BILE DUCTS: Unremarkable. No calcified gallstones. No gallbladder distention or wall edema. No intra- or extrahepatic biliary ductal dilation. PANCREAS: Unremarkable. No focal cystic or solid mass. SPLEEN: Unremarkable. Normal size without focal cystic or solid mass. ADRENALS: Unremarkable. No nodules. KIDNEYS AND URETERS: Unremarkable. Normal renal size and position. No hydronephrosis. STOMACH AND BOWEL: Unremarkable. No stomach or bowel distention. No focal inflammatory change. PELVIS: APPENDIX: The appendix is visualized and is normal. BLADDER: Unremarkable. REPRODUCTIVE: Retroverted uterus. ABDOMEN and PELVIS: INTRAPERITONEAL SPACE: There is free fluid in the pelvis. This can be physiologic. No free air. BONES/JOINTS: Unremarkable. No suspicious lytic or blastic abnormality. SOFT TISSUES: Unremarkable. No discrete abdominal or pelvic wall hernia. VASCULATURE: Unremarkable. Abdominal aorta is non-dilated. LYMPH NODES: Unremarkable. No enlarged lymph nodes. CT/Abdomen/Pelvis W IV Cont ONLY IMPRESSION: There is free fluid in the pelvis. This can be physiologic. Electronically Signed: Rock Salazar MD at 21:30 EST ,
[2024-09-12 20:46] LABS: Internal QC Validated? YES +Cl - CLEAR BKGD; Pregnancy, Serum, hCG Quali. NEGATIVE Negative
[2024-09-12] MEDS: 0.9% Normal Saline (1000mL) 1,000 ML 999 ML IV (20:46)
[2024-09-12] MEDS: Acetaminophen 500 MG Tablet 1000 MG PO (20:47)
[2024-09-12] MEDS: Famotidine 200 MG/20 ML MDV 20 MG in 0.9% Normal Saline (Pres. free 8 ML 300 MG IV (20:47)
[2024-09-12 20:53] LABS: ALB/GLOB Ratio 1.2 RATIO (0.9-2.4); AST(SGOT) 12 U/L (15-37); Alanine Aminotransfer ALT/SGPT 22 U/L (13-56); Albumin, Serum 4.3 g/dL (3.2-5.0); Alkaline Phosphatase 109 U/L (45-117); Anion Gap 6 (5-15); BUN 16 mg/dL (7-18); BUN/Creat Ratio 22.5 RATIO (10-20); Calcium,Total 9.5 mg/dL (8.5-10.1); Chloride 107 mmol/L (98-107); Creatinine, Serum 0.71 mg/dL (0.55-1.02); EST Glomerular Filtration Rate 104 mL/min (>60); Est Glom Filt Rate - Afr Amer 126 mL/min (>60); Globulin 3.5 g/dL (2.2-4.2); Glucose 101 mg/dL (74-106); Lipase 28 U/L (13-75); Potassium 3.7 mmol/L (3.5-5.1); Protein, Total 7.8 g/dL (6.4-8.2); Sodium Level 140 mmol/L (136-145)
[2024-09-12 20:59] LABS: Absolute Neutrophil Count 4.9 X10^3/uL (2.0-7.7); Basophil# 0.04 X10^3/uL; Basophil% 0.5 % (0-1); Eosinophils% 1.2 % (0-5); Hematocrit 41.1 % (37-47); Hemoglobin 13.8 g/dL (12.0-15.0); Lymphocyte % 30.7 % (19-41); Mean Corp Hgb Conc 33.6 g/dL (32-36); Mean Corpuscular Hgb 27.1 pg (27.0-32.0); Mean Corpuscular Volume 80.7 fL (81-99); Monocyte# 0.55 X10^3/uL; Monocyte% 6.7 % (0-10); NRBC Flagged by Analyzer 0 % (0-5); Neutrophil # 4.93 X10^3/uL (2.7-7.7); Neutrophil % 60.5 % (47-70); Platelet Count 297 K/mm3 (150-450); RBC Distribution Width CV 13.1 % (11.6-14.6); RBC Distribution Width SD 38.5 fl (35.1-43.9); Red Blood Count 5.09 M/mm3 (4.2-5.4); White Blood Count 8.2 K/mm3 (4.4-11.0)
--- NOTE | 2024-09-12 21:24 | EX.ED.DYSGE1 ---
HPI History of Present Illness Chief Complaint: Abd Pain Narrative Narrative: Chief complaint and HPI: Epigastric abdominal pain. 28-year-old female with no significant past medical history presents for evaluation of epigastric abdominal pain. Patient states that she has 2 children with celiac disease and therefore is on a gluten free diet regularly. She states that they recently took a trip to [facility] and pain started shortly after. Pain has been ongoing for approximately 1 week. She has tried Tums with little relief. She denies any chronic ibuprofen use. No history of ulcers. Not a daily alcohol drinker. She is currently breast-feeding. She denies any fever, chills, shortness of breath, chest pain, nausea, vomiting, diarrhea, constipation. She is sexually active. Does not believe herself to be but states there is a possibility she could be. She denies any lower abdominal pain, dysuria, hematuria. Review of systems: See HPI Medications: As listed on the chart Allergies: As listed on the chart PFSH: Per chart Vital signs: As listed on the chart. Reviewed. Physical exam: Gen: A&O x3, NAD Head: Normocephalic, atraumatic Eyes: No sclera icterus, conjunctiva clear ENT: Moist mucous membranes Neck: Trachea midline, No JVD CV: RRR, no murmurs, no peripheral edema Resp: Lungs CTA BL, no w/r/c GI: Abd soft, non-distended, tenderness to palpation in the epigastrium, no r/r/g : No CVA tenderness Musc: Full ROM, no deformity Skin: Warm, dry Neuro: Alert, oriented, grossly intact, sensation intact Psych: Cooperative, appropriate mood and affect [facility] Medical History 37 weeks gestation of Care and examination of lactating mother Family history of Kidd syndrome 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) MRSA infection Non-smoker Smoker Streptococcus group B infection of Streptococcus group B infection of (spontaneous vaginal delivery) Uterine contractions Home Medications ?Medication ?Instructions ?Recorded ?Last Taken ?Type acetaminophen 500 mg tablet 1,000 mg (2 x 500 mg) PO Q6H PRN 01/31/24 Unknown Rx PRN Pain 1-10 Or Fever #0 tabs ibuprofen 600 mg tablet 600 mg PO Q6H PRN PRN Pain 1-10 Or 01/31/24 Unknown Rx Fever #0 tabs pantoprazole 40 mg tablet,delayed 40 mg PO DAILY 30 days #30 tabs 09/12/24 Unknown Rx release (Protonix) Allergy/AdvReac Type Severity Reaction Status Date / Time No Known Allergies Allergy Verified 09/12/24 19:20 Surgical History H/O LEEP Social History Smoking Status: Never smoker EXAM Physical Exam Const Vital Signs: 09/12/24 19:17 09/12/24 21:27 09/12/24 22:02 Temperature 98 F 98.0 F Temperature Source Oral Pulse Rate 97 82 72 Respiratory Rate 16 18 18 Blood Pressure 132/84 H 130/81 H 127/72 H Blood Pressure Mean 100 97 90 Pulse Ox 98 99 100 Oxygen Delivery Method Room Air Room Air MDM MDM MDM Narrative Medical decision making narrative: 28-year-old female with no significant past medical history presents for evaluation of epigastric abdominal pain. Differential diagnosis includes but is not limited to change in diet, pancreatitis, GERD, PUD, cholelithiasis, cholecystitis, viral illness. Patient is currently breast-feeding and declined any narcotics. Tylenol, Pepcid, NS bolus ordered for symptoms. Laboratory workup ordered including CT abdomen pelvis. Will get test before CT abdomen pelvis. CBC without leukocytosis or anemia. CMP without JEOVANY or transaminitis. Lipase unremarkable. Serum negative. CT abdomen pelvis shows no acute intra-abdominal pathology other than free fluid in the pelvis. This can be physiological given that she is a female. Patient not having any lower abdominal pain. At this point in time, no clear etiology for patient's epigastric pain. Suspect possible GERD/gastritis versus change in diet from travel. Could be viral illness as well. Patient was updated of all the results. Will send her home with a prescription for Protonix. Follow-up with PCP. Return precautions explained. She confirmed understanding of the plan. Impression: 1. Epigastric abdominal pain Lab Data Labs: Laboratory Results - last 24 hr 09/12/24 20:07 WBC 8.2 RBC 5.09 Hgb 13.8 Hct 41.1 MCV 80.7 L MCH 27.1 MCHC 33.6 RDW Std Deviation 38.5 RDW Coeff of [place] 13.1 Plt Count 297 MPV 11.0 Immature Gran % (Auto) 0.400 Neut % (Auto) 60.5 Lymph % (Auto) 30.7 Taliaferro % (Auto) 6.7 Eos % (Auto) 1.2 Baso % (Auto) 0.5 Absolute Neuts (auto) 4.9 Absolute Lymphs (auto) 2.50 Nucleated RBC % 0 Sodium 140 Potassium 3.7 Chloride 107 Carbon Dioxide 27.0 Anion Gap 6 BUN 16 Creatinine 0.71 Estim Creat Clear Calc 103.60 Est GFR (MDRD) Af Amer 126 Est GFR (MDRD) Non-Af 104 BUN/Creatinine Ratio 22.5 H Glucose 101 Calcium 9.5 Total Bilirubin 0.50 AST 12 L ALT 22 Alkaline Phosphatase 109 Total Protein 7.8 Albumin 4.3 Globulin 3.5 Albumin/Globulin Ratio 1.2 Lipase 28 Serum , Qual NEGATIVE Radiography Diagnostic Testing: Clinical Impression(s) from Imaging Studies Abdomen/Pelvis CT 09/12/24 20:24 IMPRESSION: There is free fluid in the pelvis. This can be physiologic. Electronically Signed: Rock Salazar MD at 21:30 EST Reading Location ID and State: [facility] / [place] , Service support , Discharge Plan Triage Chief Complaint: Abd Pain ED Provider: Conrad Arceo Dx/Rx/DC Orders Clinical Impression: Epigastric abdominal pain Instructions: ED Epigastric Pain Uncertain Cause Prescriptions: New pantoprazole [Protonix] 40 mg tablet,delayed release (DR/EC) 40 mg PO DAILY 30 Days Qty: 30 0RF No Action acetaminophen 500 mg Tablet 1,000 mg PO Q6H PRN PRN (Reason: Pain 1-10 Or Fever) Qty: 0 0RF ibuprofen 600 mg Tablet 600 mg PO Q6H PRN PRN (Reason: Pain 1-10 Or Fever) Qty: 0 0RF Primary Care Provider: Care Physician,No Primary Referrals: Burton Serna MD [Med Staff - Active Staff] - 3-5 Days Care Physician,No Primary [Primary Care Provider] - 3-5 Days Activity Restrictions/Additional Instructions: Follow-up with your primary care physician if you do not have 1 follow-up with the 1 provided above. Return back to the ED if symptoms change or worsen. Print Language: Indonesian Disposition Disposition: Home, Self Care Discharge Date/Time: 09/12/24 22:03
[2024-09-12 21:27] VITALS: BP 130/81; PULSE 82; RESP 18; O2SAT 99
[2024-09-12 22:02] VITALS: BP 127/72; PULSE 72; RESP 18; TEMP 36.7; O2SAT 100
== END 2024-09-12 22:03 | disposition home or self-care (01) ==
PROVIDERS: Emergency Provider Surgery; Visit Provider Surgery
DX: R10.13 Epigastric pain (principal)
CPT/HCPCS: 74177; 80053; 83690; 84703; 85025; 96360; 99283; Q9967; A4216